=== PATIENT | female | born 1980 | race Caucasian/White ===

== ENCOUNTER 2018-12-26 17:33 | Emergency (ER) | payer SELFPAY ==
--- OUTSIDE RECORDS SUMMARY | 2018-12-26 17:35 | XMS REPORT ---
:1980 Author Organization [facility] Address [address] [place] [address] Care Team Providers Name Role Phone Unavailable Unavailable Unavailable Payers Payer Name Policy Type Policy Number Effective Date Expiration Date Problems This patient has no known problems. Allergies, Adverse Reactions, Alerts Allergy Name Allergy Status Severity Reaction(s) Onset Inactive Treating Comments Type Date Date Clinician droperidol DA Active U 2018-06 00:00:0 0 morphine DA Active U 2018-06 00:00:0 0 cefaclor DA Active U 2018-06 00:00:0 0 Medications This patient has no known medications.
--- OUTSIDE RECORDS SUMMARY | 2018-12-26 17:35 | XMS REPORT | Clinical Summary ---
:1980 Author Organization [facility] Address [address] [place] [address] Care Team Providers Name Role Phone Unavailable Primary Care Provider Unavailable Allergies Active Allergy Reactions Severity Noted Date Comments Cefaclor 09/29/2017 Droperidol 09/29/2017 Morphine 09/29/2017 Medications Not on file Active Problems Not on file Social History Tobacco Use Types Packs/Day Years Used Date Never Assessed Sex Assigned at Date Recorded Not on file Job Start Date Occupation Industry Not on file Not on file Not on file Travel History Travel Start Travel End No recent travel history available. Last Filed Vital Signs Not on file Plan of Treatment Not on file Results Not on fileafter 12/25/2017 Insurance Payer Benefit Plan / Group Subscriber ID Type Phone Address [facility] [employer] [facility] xxxxxxxxx O Advance Directives Patient has advance care planning documents on file. For more information, please contact:[phone] [place] [address]
[2018-12-26] MEDS ORDERED: MEPERIDINE HCL 25 MG/0.5 ML ONE ×2 (18:28→21:45)
[2018-12-26] MEDS ORDERED: PROMETHAZINE 25 MG/ML VIAL ONE (18:29)
[2018-12-26 18:58] LABS: Urine Blood 3+ (NEG); Urine Glucose NEGATIVE (NEG); Urine Protein 2+ (NEG)
[2018-12-26 19:04] LABS: Absolute Lymphocytes (CBC) 1.9 K/uL (0.7-4.9); Absolute Monocytes 0.6 K/uL (0.1-1.3); Basophils % 0.5 % (0-1.3); Eosinophils % 1.5 % (0-4.4); Hematocrit 40.3 % (36.0-45.0); Lymphocytes % 24.6 % (15.3-44.8); MPV 7.4 fL (7.6-11.3); Monocytes % 7.8 % (3.3-12.3); RBC Red Blood Cell Count 4.92 M/uL (3.86-4.86)
[2018-12-26 19:21] LABS: ALT/SGPT 28 U/L (12-78); AST/SGOT 14 U/L (15-37); Alkaline Phosphatase 62 U/L (45-117); BUN Blood Urea Nitrogen 8 mg/dL (7-18); Bicarbonate 24 mmol/L (21-32); Bilirubin Direct < 0.1 mg/dL (0-0.2); Bilirubin Total 0.3 mg/dL (0.2-1.0); Glucose Level 93 mg/dL (74-106); Lipase 291 U/L (73-393); Potassium 3.7 mmol/L (3.5-5.1); Protein, Total 8.1 g/dL (6.4-8.2); Sodium Level 140 mmol/L (136-145)
--- NOTE | 2018-12-26 19:24 | RAD REPORT ---
EXAM DESCRIPTION: US - Abdomen Exam Limited - 12/26/2018 7:08 pm CLINICAL HISTORY: Abdominal pain. COMPARISON: None. FINDINGS: The gallbladder wall is not thickened. A gallstone is not seen. The biliary tree is normal caliber. IMPRESSION: Unremarkable gallbladder ultrasound.
--- NOTE | 2018-12-26 20:13 | RAD REPORT ---
EXAM DESCRIPTION: CT - Abdomen Pelvis W Contrast - 12/26/2018 7:49 pm CLINICAL HISTORY: Abdominal pain with nausea. COMPARISON: none. TECHNIQUE: Computed axial tomography of the abdomen pelvis was obtained. 100 cc Isovue-300 was admin istered intravenously. Oral contrast was not requested which limits evaluation of bowel. All CT scans are performed using dose optimization technique as appropriate and may include automated exposure control or mA/KV adjustment according to patient size. FINDINGS: The liver, spleen, pancreas, adrenal and kidneys appear unremarkable. There is no evidence of diverticulitis. The appendix is normal. An IUD is in place. An adnexal mass is not seen A tiny umbilical hernia IMPRESSION: No acute abnormality is displayed.
[2018-12-26] MEDS ORDERED: MAGNE/ALUM HYDROXD 30 ML UCUP ONE (20:45)
[2018-12-26] MEDS ORDERED: LIDOCAINE VISCOUS 2% SOLN 15 ML UDC ONE (20:45)
--- NOTE | 2018-12-26 22:24 | ER ---
Nurse's Notes [facility] Name: Riana Franklin Age: 38 yrs Sex: Female : 1980 Arrival Date: 12/26/2018 Time: 17:38 Bed 18 Private MD: None, None Diagnosis: Gastritis, unspecified Presentation: 12/26 17:57 Presenting complaint: Patient states: epigastric pain radiates to the back, nausea sv started today. Transition of care: patient was not received from another setting of care. Onset of symptoms was December 26, 2018. Care prior to arrival: None. 17:57 Method Of Arrival: Ambulatory sv 17:57 Acuity: ELTON 3 sv 19:00 Risk Assessment: Do you want to hurt yourself or someone else? Patient reports no jb4 desire to harm self or others. Triage Assessment: 18:00 General: Appears in no apparent distress. uncomfortable, Behavior is calm, cooperative, sv appropriate for age. Pain: Complains of pain in epigastric area Pain currently is 7 out of 10 on a pain scale. Neuro: Level of Consciousness is awake, alert, obeys commands, Oriented to person, place, time, situation, Gait is steady. Respiratory: Respiratory effort is even, unlabored, Respiratory pattern is regular, symmetrical. GI: Reports upper abdominal pain, nausea. Historical: - Allergies: 17:59 Morphine; sv 17:59 Droperidol; sv 17:59 Ceclor; sv - PMHx: 17:59 Ovarian cyst; sv - PSHx: 17:59 breast augmentation; ovarian cyst; sv - Immunization history:: Adult Immunizations up to date, Flu vaccine is up to date. - Social history:: Smoking status: Patient/guardian denies using tobacco. - Ebola Screening: : No symptoms or risks identified at this time. Screenin:30 Abuse screen: Denies threats or abuse. Denies injuries from another. Nutritional sg screening: No deficits noted. Tuberculosis screening: No symptoms or risk factors identified. Never had TB. Fall Risk None identified. Assessment: 18:10 General: Appears in no apparent distress. uncomfortable, well groomed, well developed, sg well nourished, Behavior is calm, cooperative, appropriate for age. Pain: Complains of pain in right upper quadrant and epigastric area Quality of pain is described as aching, crampy. Neuro: No deficits noted. Cardiovascular: Capillary refill is brisk in bilateral fingers Patient's skin is warm and dry. Chest pain is denied. Respiratory: Airway is patent Respiratory effort is even, unlabored, Respiratory pattern is regular, symmetrical, Breath sounds are clear. GI: Bowel sounds present X 4 quads. Abd is soft X 4 quads Abdomen is tender to palpation in right upper quadrant. : No signs and/or symptoms were reported regarding the genitourinary system. EENT: No signs and/or symptoms were reported regarding the EENT system. Derm: Skin is pink, warm \T\ dry. Musculoskeletal: No signs and/or symptoms reported regarding the musculoskeletal system. 19:00 Reassessment: Patient appears in no apparent distress at this time. Patient and/or jb4 family updated on plan of care and expected duration. Pain level reassessed. Patient is alert, oriented x 3, equal unlabored respirations, skin warm/dry/pink. 20:00 Reassessment: Patient appears in no apparent distress at this time. Patient and/or jb4 family updated on plan of care and expected duration. Pain level reassessed. Patient is alert, oriented x 3, equal unlabored respirations, skin warm/dry/pink. 21:00 Reassessment: Patient appears in no apparent distress at this time. Patient and/or jb4 family updated on plan of care and expected duration. Pain level reassessed. Patient is alert, oriented x 3, equal unlabored respirations, skin warm/dry/pink. 22:00 Reassessment: Patient appears in no apparent distress at this time. Patient and/or jb4 family updated on plan of care and expected duration. Pain level reassessed. Patient is alert, oriented x 3, equal unlabored respirations, skin warm/dry/pink. Patient states feeling better. Vital Signs: 17:59 BP 182 / 98; Pulse 91; Resp 22; Temp 98.2; Pulse Ox 98% ; Weight 97.07 kg; Height 5 ft. sv 3 in. (160.02 cm); Pain 7/10; 20:00 BP 140 / 90; Pulse 76; Resp 16; Pulse Ox 98% on R/A; jb4 22:00 BP 123 / 66; Pulse 71; Resp 16; Pulse Ox 96% on R/A; jb4 17:59 Body Mass Index 37.91 (97.07 kg, 160.02 cm) ED Course: 17:38 Patient arrived in ED. dl4 17:38 None, None is Private Physician. dl4 17:58 Triage completed. sv 18:00 Arm band placed on. sv 18:06 Dwight Julian PA is PHCP. jr8 18:06 Brook Liriano MD is Attending Physician. jr8 18:13 Marcello Servin, RN is Primary Nurse. sg 18:30 Missed attempt(s): 20 gauge in right antecubital area. Bleeding controlled, band aid sg applied, catheter tip intact. 18:37 Radiology exam delayed due to IV insertion attempt and/or patient not having cy appropriate IV at this time. 18:40 Initial lab(s) drawn, by me, sent to lab. Inserted saline lock: 22 gauge in left sg antecubital area, using aseptic technique. Blood collected. 19:00 Patient has correct armband on for positive identification. Placed in gown. Bed in low jb4 position. Call light in reach. Side rails up X 1. Pulse ox on. NIBP on. 19:07 US Abdomen Limited In Process Unspecified. EDMS 19:[address] via wheelchair. sj 19:45 CT completed. Patient tolerated procedure well. Patient moved back from CT. nj 19:50 CT Abd/Pelvis - W/Contrast In Process Unspecified. EDMS 20:16 Zane Tilley, RN is Primary Nurse. jb4 21:45 Troponin (emerg Dept Use Only) Sent. jb4 22:24 Nadeem Cuello MD is Referral Physician. jr8 22:40 No provider procedures requiring assistance completed. IV discontinued, intact, jb4 bleeding controlled. Administered Medications: 18:40 Drug: Demerol 25 mg Route: IVP; Site: left antecubital; sg 19:00 Follow up: Response: No adverse reaction; Pain is decreased jb4 18:40 Drug: Promethazine 12.5 mg Route: IVP; Site: left antecubital; sg 19:00 Follow up: Response: No adverse reaction; Nausea is decreased jb4 20:40 Drug: GI Cocktail without - (Maalox Suspension 30 ml, Lidocaine Liquid 2 % 15 jb4 ml) Route: PO; 21:00 Follow up: Response: No adverse reaction; Pain is decreased jb4 21:47 Drug: Demerol 25 mg Route: IVP; Site: left antecubital; jb4 22:12 Follow up: Response: No adverse reaction; Pain is decreased jb4 Outcome: 22:24 Discharge ordered by . noy 22:40 Discharged to home ambulatory, with family. jb4 22:40 Condition: stable 22:40 Discharge instructions given to patient, family, Instructed on discharge instructions, follow up and referral plans. medication usage, Demonstrated understanding of instructions, follow-up care, medications, Prescriptions given X 3. 22:43 Patient left the ED. jb4 Signatures: Dispatcher [employer] EDCecilia Drake RN RN sv Gay, Steven, RN RN sg Jones, Susan sj Roszak, Josh, PA PA jr8 Bryson, James, RN RN jb4 Jordan, Miles Lee David dl4 Corrections: (The following items were deleted from the chart) 18:01 17:59 Pulse 91bpm; Resp 22bpm; Pulse Ox 98%; Temp 98.2F; 97.07 kg; Height 5 ft. 3 in.; sv BMI: 37.9; Pain 7/10; sv
--- NOTE | 2018-12-26 22:24 | EDPHYS ---
Physician Documentation [facility] Name: Riana Franklin Age: 38 yrs Sex: Female : 1980 Arrival Date: 12/26/2018 Time: 17:38 Bed 18 Private MD: None, None ED Physician Brook Liriano HPI: 12/26 18:39 This 38 yrs old Female presents to ER via Ambulatory with complaints of jr8 Abdominal Pain. 18:39 The patient presents with abdominal pain in the epigastric area, in the upper abdomen. jr8 Onset: The symptoms/episode began/occurred acutely, today. The symptoms radiate to back. Associated signs and symptoms: Pertinent positives: nausea. The symptoms are described as shooting, stabbing. Modifying factors: The symptoms are alleviated by nothing, the symptoms are aggravated by nothing. Severity of pain: At its worst the pain was moderate in the emergency department the pain is unchanged. The patient has not experienced similar symptoms in the past. The patient has not recently seen a physician. Historical: - Allergies: 17:59 Morphine; sv 17:59 Droperidol; sv 17:59 Ceclor; sv - PMHx: 17:59 Ovarian cyst; sv - PSHx: 17:59 breast augmentation; ovarian cyst; sv - Immunization history:: Adult Immunizations up to date, Flu vaccine is up to date. - Social history:: Smoking status: Patient/guardian denies using tobacco. - Ebola Screening: : No symptoms or risks identified at this time. ROS: 18:39 Eyes: Negative for injury, pain, redness, and discharge, ENT: Negative for injury, jr8 pain, and discharge, Neck: Negative for injury, pain, and swelling, Cardiovascular: Negative for chest pain, palpitations, and edema, Respiratory: Negative for shortness of breath, cough, wheezing, and pleuritic chest pain, Back: Negative for injury and pain, MS/Extremity: Negative for injury and deformity, Skin: Negative for injury, rash, and discoloration, Neuro: Negative for headache, weakness, numbness, tingling, and seizure. 18:39 Abdomen/GI: Positive for abdominal pain, nausea, Negative for vomiting, diarrhea, abdominal distension, anorexia, dysphagia, hematemesis, black/tarry stool, rectal pain, rectal bleeding, bowel incontinence, flatulence. Exam: 18:39 Eyes: Pupils equal round and reactive to light, extra-ocular motions intact. Lids and jr8 lashes normal. Conjunctiva and sclera are non-icteric and not injected. Cornea within normal limits. Periorbital areas with no swelling, redness, or edema. ENT: Nares patent. No nasal discharge, no septal abnormalities noted. Tympanic membranes are normal and external auditory canals are clear. Oropharynx with no redness, swelling, or masses, exudates, or evidence of obstruction, uvula midline. Mucous membranes moist. Neck: Trachea midline, no thyromegaly or masses palpated, and no cervical lymphadenopathy. Supple, full range of motion without nuchal rigidity, or vertebral point tenderness. No Meningismus. Cardiovascular: Regular rate and rhythm with a normal S1 and S2. No gallops, murmurs, or rubs. Normal PMI, no JVD. No pulse deficits. Respiratory: Lungs have equal breath sounds bilaterally, clear to auscultation and percussion. No rales, rhonchi or wheezes noted. No increased work of breathing, no retractions or nasal flaring. Back: No spinal tenderness. No costovertebral tenderness. Full range of motion. Skin: Warm, dry with normal turgor. Normal color with no rashes, no lesions, and no evidence of cellulitis. MS/ Extremity: Pulses equal, no cyanosis. Neurovascular intact. Full, normal range of motion. Neuro: Awake and alert, GCS 15, oriented to person, place, time, and situation. Cranial nerves II-XII grossly intact. Motor strength 5/5 in all extremities. Sensory grossly intact. Cerebellar exam normal. Normal gait. 18:39 Abdomen/GI: Inspection: obese Bowel sounds: active, all quadrants, Palpation: soft, in all quadrants, moderate abdominal tenderness, in the epigastric area and right upper quadrant, mass, is not appreciated, rebound tenderness, is not appreciated, voluntary guarding, is elicited in the epigastric area, involuntary guarding, is not appreciated, no appreciated organomegaly, Indicators: McBurney's point is not tender, Landry's sign is negative, Rovsing's sign is negative, Liver: tenderness, is not appreciated. Vital Signs: 17:59 BP 182 / 98; Pulse 91; Resp 22; Temp 98.2; Pulse Ox 98% ; Weight 97.07 kg; Height 5 ft. sv 3 in. (160.02 cm); Pain 7/10; 20:00 BP 140 / 90; Pulse 76; Resp 16; Pulse Ox 98% on R/A; jb4 22:00 BP 123 / 66; Pulse 71; Resp 16; Pulse Ox 96% on R/A; jb4 17:59 Body Mass Index 37.91 (97.07 kg, 160.02 cm) sv MDM: 18:07 Patient medically screened. 20:30 Differential diagnosis: bowel obstruction, cholecystitis, Cholelithiasis, jr8 diverticulitis, gastritis, gastroesophageal reflux disease, non-specific abd pain, pancreatitis, Peptic Ulcer Disease, Perf. Duodenal Ulcer, Perf. Gastric Ulcer. Data reviewed: vital signs, nurses notes, lab test result(s), EKG, radiologic studies, CT scan, ultrasound. Data interpreted: Pulse oximetry: on room air is 98 %. Interpretation: normal. Counseling: I had a detailed discussion with the patient and/or guardian regarding: the historical points, exam findings, and any diagnostic results supporting the discharge/admit diagnosis, lab results, radiology results, the need for outpatient follow up, a family practitioner, a bellperson, to return to the emergency department if symptoms worsen or persist or if there are any questions or concerns that arise at home. Response to treatment: the patient's symptoms have markedly improved after treatment. 12/26 18:06 Order name: Basic Metabolic Panel; Complete Time: 12/26 18:06 Order name: CBC with Diff; Complete Time: 19:12 12/26 18:06 Order name: Creatinine for Radiology; Complete Time: :12/26 18:06 Order name: Hepatic Function; Complete Time: :12/26 18:06 Order name: Lipase; Complete Time: 12/26 18:17 Order name: Urine Dipstick--Ancillary (enter results); Complete Time: :12/26 18:15 Order name: US Abdomen Limited; Complete Time: 12/26 18:17 Order name: Urine --Ancillary (enter results); Complete Time: 19:12/26 19:32 Order name: CT Abd/Pelvis - W/Contrast; Complete Time: 20:24 12/26 21:27 Order name: Troponin (emerg Dept Use Only); Complete Time: 22:23 12/26 18:06 Order name: IV Saline Lock; Complete Time: 18:49 12/26 18:06 Order name: Labs collected and sent; Complete Time: 18:49 12/26 18:06 Order name: Urine Test (obtain specimen); Complete Time: 18:17 12/26 18:06 Order name: Urine Dipstick-Ancillary (obtain specimen); Complete Time: 18:17 12/26 20:29 Order name: EKG - Nurse/Tech; Complete Time: 20:56 Administered Medications: 18:40 Drug: Demerol 25 mg Route: IVP; Site: left antecubital; sg 19:00 Follow up: Response: No adverse reaction; Pain is decreased jb4 18:40 Drug: Promethazine 12.5 mg Route: IVP; Site: left antecubital; sg 19:00 Follow up: Response: No adverse reaction; Nausea is decreased jb4 20:40 Drug: GI Cocktail without - (Maalox Suspension 30 ml, Lidocaine Liquid 2 % 15 jb4 ml) Route: PO; 21:00 Follow up: Response: No adverse reaction; Pain is decreased jb4 21:47 Drug: Demerol 25 mg Route: IVP; Site: left antecubital; jb4 22:12 Follow up: Response: No adverse reaction; Pain is decreased jb4 Disposition: 12/26/18 22:24 Discharged to Home. Impression: Gastritis, unspecified. - Condition is Stable. - Discharge Instructions: Gastritis, Adult. - Prescriptions for Ultracet 37.5- 325 mg Oral Tablet - take 1 tablet by ORAL route every 6 hours - for up to 5 days; do not exceed 8 tablets per day.; 30 tablet. Carafate 1 gram Oral Tablet - take 1 tablet by ORAL route 4 times per day take on an empty stomach, beginning on waking and last dose at bedtime; 100 tablet. promethazine 25 mg Rectal suppository - insert 1 suppository by RECTAL route every 6 hours; 12 suppository. - Medication Reconciliation Form, Thank You Letter, Antibiotic Education, Prescription Opioid Use form. - Follow up: Nadeem Cuello MD; When: 2 - 3 days; Reason: Recheck today's complaints, Continuance of care, Re-evaluation by your physician. - Problem is new. - Symptoms have improved. Signatures: Dispatcher [employer] [address], RN RN Marcello Montana RN RN sg Roszak, Josh, PA PA jr8 Zane Tilley RN RN jb4 Corrections: (The following items were deleted from the chart) 22:43 22:24 12/26/2018 22:24 Discharged to Home. Impression: Gastritis, unspecified. jb4 Condition is Stable. Forms are Medication Reconciliation Form, Thank You Letter, Antibiotic Education, Prescription Opioid Use. Follow up: Nadeem Cuello; When: 2 - 3 days; Reason: Recheck today's complaints, Continuance of care, Re-evaluation by your physician. Problem is new. Symptoms have improved. jr8
--- NOTE | 2018-12-27 12:21 | EKG ---
Test Date: 2018-12-26 Test Time: 20:35:04 Sr. Operations Manager: DHEERAJ MEASUREMENT RESULTS: Intervals: Rate: 69 WY: 168 QRSD: 88 QT: 398 QTc: 426 [place]: P: 57 WY: 168 QRS: -2 T: 4 INTERPRETIVE STATEMENTS: Normal sinus rhythm Normal ECG No previous ECG available for comparison Electronically Signed On 12-27-18 12:21:12 JOURNEYMAN [employer]UMBER by Aubrey Cano
== END 2018-12-26 22:43 | disposition home or self-care (01) ==
LOC: ER 17:33
DX: K29.70 Gastritis, unspecified, without bleeding (principal); Z98.82 Breast implant status; Z88.5 Allergy status to narcotic agent; Z88.8 Allergy status to other drugs, medicaments and biological substances
CPT/HCPCS: 36415; 74177; 76705; 80048; 80076; 81003; 81025; 83690; 84484; 85025; 93005; J2175; J2550; Q9967

== ENCOUNTER 2019-03-10 21:53 | Emergency (ER) | payer SELFPAY ==
--- OUTSIDE RECORDS SUMMARY | 2019-03-10 21:55 | XMS REPORT ---
:1980 [facility] Address [address] [place] [address] Care Team Providers Name Role Phone Unavailable [...]
--- OUTSIDE RECORDS SUMMARY | 2019-03-10 21:55 | XMS REPORT | Clinical Summary ---
:1980 Author Organization [facility] Address [address] [place] [address] Care Team Providers Name Role Phone Unavailable [...] Not on file Results Not on fileafter 03/09/2018 Insurance Payer Benefit Plan / Group Subscriber ID Type Phone Address [facility] [employer] [facility] xxxxxxxxx O Advance Directives Patient has advance care planning documents on file. For more information, please contact:[phone] [place] [address]
[2019-03-10] MEDS ORDERED: NA CHLORIDE 0.9% 1,000 ML ONE (22:37)
[2019-03-10] MEDS ORDERED: ONDANSETRON 4 MG/2 ML VIAL ONE (22:38)
[2019-03-10] MEDS ORDERED: MAGNE/ALUM HYDROXD 30 ML UCUP ONE (22:38)
[2019-03-10] MEDS ORDERED: LIDOCAINE VISCOUS 2% SOLN 15 ML UDC ONE (22:38)
[2019-03-10] MEDS ORDERED: PROMETHAZINE 25 MG/ML VIAL ONE (23:04)
[2019-03-10] MEDS ORDERED: MEPERIDINE HCL 25 MG/0.5 ML ONE (23:04)
[2019-03-10 23:24] LABS: Absolute Lymphocytes (CBC) 2.9 K/uL (0.7-4.9); Absolute Monocytes 0.7 K/uL (0.1-1.3); Absolute Neutrophil 5.8 K/uL (1.8-8.0); Basophils % 0.5 % (0-1.3); Eosinophils % 1.9 % (0-4.4); Hematocrit 43.5 % (36.0-45.0); Lymphocytes % 30.1 % (15.3-44.8); MPV 7.9 fL (7.6-11.3); Monocytes % 7.2 % (3.3-12.3); RBC Red Blood Cell Count 5.14 M/uL (3.86-4.86)
[2019-03-10 23:36] LABS: Urine Bacteria <20 /HPF (<20); Urine Culture Reflex Order NOT NEEDED; Urine RBC NONE SEEN /HPF (NONE SEEN)
[2019-03-10 23:41] LABS: ALT/SGPT 28 U/L (12-78); AST/SGOT 17 U/L (15-37); Alkaline Phosphatase 67 U/L (45-117); BUN Blood Urea Nitrogen 18 mg/dL (7-18); Bicarbonate 24 mmol/L (21-32); Bilirubin Direct < 0.1 mg/dL (0-0.2); Bilirubin Total 0.4 mg/dL (0.2-1.0); Glucose Level 87 mg/dL (74-106); Lipase 114 U/L (73-393); Sodium Level 141 mmol/L (136-145)
[2019-03-11 00:06] LABS: Blood Morphology Comment NOT SEEN (NOT SEEN); Platelet Estimate ADEQ; Urine White Blood Cell Casts OK
[2019-03-11] MEDS ORDERED: NA CHLORIDE 0.9% 1,000 ML ONE (01:26)
[2019-03-11] MEDS ORDERED: PROMETHAZINE 25 MG/ML VIAL ONE (02:12)
[2019-03-11] MEDS ORDERED: MEPERIDINE HCL 25 MG/0.5 ML ONE (02:12)
--- NOTE | 2019-03-11 03:04 | ER ---
Nurse's Notes [facility] Name: Riana Franklin Age: 38 yrs Sex: Female : 1980 Arrival Date: 03/10/2019 Time: 21:55 Bed 25 Private MD: Diagnosis: Gastritis, unspecified;Upper abdominal pain, unspecified Presentation: 03/10 22:05 Presenting complaint: Patient states: Abdominal pain that began a couple days ago and lp1 worsening, states pain when taking a breath; States similar symptoms when diagnosed with gastritis, but also has ovarian cysts. Transition of care: patient was not received from another setting of care. Onset of symptoms was March 10, 2019. Risk Assessment: Do you want to hurt yourself or someone else? Patient reports no desire to harm self or others. Initial Sepsis Screen: Does the patient meet any 2 criteria? No. Patient's initial sepsis screen is negative. Does the patient have a suspected source of infection? No. Patient's initial sepsis screen is negative. Care prior to arrival: None. 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 - Social history:: Smoking status: Patient/guardian denies using tobacco. - Ebola Screening: : No symptoms or risks identified at this time. - Family history:: not pertinent. - Hospitalizations: : No recent hospitalization is reported. Screenin:10 Abuse screen: Denies threats or abuse. Denies injuries from another. Nutritional lp1 screening: No deficits noted. Tuberculosis screening: No symptoms or risk factors identified. Fall Risk None identified. Assessment: 22:05 General: Appears in no apparent distress. uncomfortable, Behavior is calm, cooperative, ca1 appropriate for age. Pain: Complains of pain in abdomen Pain does not radiate. Pain currently is 10 out of 10 on a pain scale. Quality of pain is described as sharp, Pain began 1 day ago. Neuro: Level of Consciousness is awake, alert, obeys commands, Oriented to person, place, time, situation. Cardiovascular: Heart tones S1 S2 present Capillary refill < 3 seconds Patient's skin is warm and dry. Respiratory: Airway is patent Respiratory effort is even, unlabored, Respiratory pattern is regular, symmetrical, Breath sounds are clear bilaterally. GI: Abdomen is round non-distended, Bowel sounds present X 4 quads. Abd is soft X 4 quads Abdomen is tender to palpation X 4 quads. : No deficits noted. No signs and/or symptoms were reported regarding the genitourinary system. EENT: No deficits noted. No signs and/or symptoms were reported regarding the EENT system. Derm: Skin is intact, is healthy with good turgor, Skin is pink, warm \T\ dry. Musculoskeletal: Circulation, motion, and sensation intact. Capillary refill < 3 seconds. 23:11 Reassessment: Patient appears in no apparent distress at this time. Patient and/or ca1 family updated on plan of care and expected duration. Pain level reassessed. Patient is alert, oriented x 3, equal unlabored respirations, skin warm/dry/pink. Patient states feeling better. 03/11 00:02 Reassessment: Patient appears in no apparent distress at this time. Patient and/or ca1 family updated on plan of care and expected duration. Pain level reassessed. Patient is alert, oriented x 3, equal unlabored respirations, skin warm/dry/pink. Patient states feeling better. Vital Signs: 03/10 22:09 BP 146 / 104; Pulse 80; Resp 18; Temp 98.1(O); Pulse Ox 99% on R/A; Weight 92.53 kg; lp1 Height 5 ft. 3 in. (160.02 cm); Pain 10/10; 23:00 BP 134 / 78; Pulse 83; Resp 18 S; Pulse Ox 97% on R/A; ca1 03/11 00:02 BP 106 / 80; Pulse 73; Resp 19 S; Pulse Ox 99% on R/A; ca1 01:00 BP 110 / 71; Pulse 75; Resp 17; Pulse Ox 96% ; rv 02:00 BP 135 / 96; Pulse 78; Resp 16; Pulse Ox 100% ; rv 02:30 BP 112 / 63; Pulse 76; Resp 16; Pulse Ox 95% ; rv 03:00 BP 106 / 55; Pulse 77; Resp 15; Pulse Ox 100% ; rv 03/10 22:09 Body Mass Index 36.14 (92.53 kg, 160.02 cm) lp1 ED Course: 03/10 21:55 Patient arrived in ED. do 22:07 Triage completed. lp1 22:08 Carlos Manuel Bosch MD is Attending Physician. rn 22:09 Aisha Chung RN is Primary Nurse. ca1 22:10 Arm band placed on right wrist. lp1 22:10 Patient has correct armband on for positive identification. Placed in gown. Bed in low ca1 position. Call light in reach. Side rails up X 1. Pulse ox on. NIBP on. Warm blanket given. 23:11 No provider procedures requiring assistance completed. ca1 03/11 01:[address] via wheelchair. nj 01:34 CT completed. Patient tolerated procedure well. nj 01:37 [address] back from [address]. nj 01:50 CT Abd/Pelvis - W/Contrast In Process Unspecified. EDMS 03:02 IV discontinued, intact, bleeding controlled, No redness/swelling at site. Pressure rv dressing applied. Administered Medications: 03/10 21:30 Drug: Zofran 4 mg Route: IVP; Site: right antecubital; ca1 22:40 Follow up: Response: Nausea unchanged ca1 22:15 Drug: NS 0.9% 1000 ml Route: IV; Rate: 1000 ml; Site: right antecubital; ca1 23:56 Follow up: Response: No adverse reaction; IV Status: Completed infusion ca1 22:51 Drug: Phenergan 12.5 mg Route: IVP; Site: right antecubital; ca1 23:57 Follow up: Response: No adverse reaction; Nausea is decreased ca1 22:55 Drug: Demerol 25 mg Route: IVP; Site: right antecubital; ca1 23:57 Follow up: Response: No adverse reaction; Pain is decreased ca1 23:56 Drug: GI Cocktail without - (Maalox Suspension 30 ml, Lidocaine Liquid 2 % 15 ca1 ml) Route: PO; 03/11 01:17 Follow up: Response: Pain is unchanged, physician notified rv 01:17 Drug: NS 0.9% 1000 ml Route: IV; Rate: 1000 ml; Site: right antecubital; rv 03:13 Follow up: IV Status: Completed infusion rv 02:03 Drug: Phenergan 12.5 mg Route: IVP; Site: right antecubital; rv 03:13 Follow up: Response: Nausea is decreased rv 02:04 Drug: Demerol 25 mg Route: IVP; Site: right antecubital; rv 03:13 Follow up: Response: Pain is decreased rv Outcome: 03:01 Discharged to home ambulatory. rv 03:01 Condition: good 03:01 Discharge instructions given to patient, Instructed on discharge instructions, follow up and referral plans. medication usage, Demonstrated understanding of instructions, follow-up care, medications, Prescriptions given X 03:03 Discharge ordered by . rn 03:11 Prescriptions given X 3. rv 03:11 Patient left the ED. rv Signatures: Dispatcher [employer] EDMS Carlos Manuel Bosch MD MD rn Pena, Laura, RN RN lp1 Shefali Zavala Nathan nj Vicente, Ronaldo, RN RN rv Acob, TROY Leonard RN ca1 Corrections: (The following items were deleted from the chart) 03/10 23:58 23:57 Response: Nausea unchanged ca1 ca1
--- NOTE | 2019-03-11 03:04 | EDPHYS ---
Physician Documentation [facility] Name: Riana Franklin Age: 38 yrs Sex: Female : 1980 Arrival Date: 03/10/2019 Time: 21:55 Bed 25 Private MD: ED Physician Carlos Manuel Bosch HPI: 03/10 23:00 This 38 yrs old Female presents to ER via Wheelchair with complaints of rn Abdominal Pain. 23:00 The patient presents with abdominal pain in the epigastric area. Onset: The rn symptoms/episode began/occurred today. The symptoms do not radiate. Associated signs and symptoms: Pertinent positives: nausea and vomiting, diarrhea, Pertinent negatives: fever, vaginal discharge, vomiting blood. The symptoms are described as achy. Modifying factors: The symptoms are alleviated by nothing, the symptoms are aggravated by touching the area. Severity of pain: At its worst the pain was moderate in the emergency department the pain is unchanged. The patient has experienced a previous episode. The patient has not recently seen a physician. Reports epigastric abd pain that began today, similar episode in past, told gastritis, had negative u/s of gallbladder a few months ago, + nausea/vomiting/diarrhea. . 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 - Social history:: Smoking status: Patient/guardian denies using tobacco. - Ebola Screening: : No symptoms or risks identified at this time. - Family history:: not pertinent. - Hospitalizations: : No recent hospitalization is reported. ROS: 23:00 Constitutional: Negative for fever, chills, and weight loss, Eyes: Negative for injury, rn pain, redness, and discharge, Neck: Negative for injury, pain, and swelling, Cardiovascular: Negative for chest pain, palpitations, and edema, Respiratory: Negative for shortness of breath, cough, wheezing, and pleuritic chest pain, Abdomen/GI: Negative for constipation MS/Extremity: Negative for injury and deformity, Skin: Negative for injury, rash, and discoloration, Neuro: Negative for headache, weakness, numbness, tingling, and seizure. Exam: 23:00 Constitutional: This is a well developed, well nourished patient who is awake, alert, rn and in no acute distress. Head/Face: Normocephalic, atraumatic. Eyes: Pupils equal round and reactive to light, extra-ocular motions intact. Lids and lashes normal. Conjunctiva and sclera are non-icteric and not injected. Cornea within normal limits. Periorbital areas with no swelling, redness, or edema. ENT: MMM Cardiovascular: Regular rate and rhythm, No pulse deficits. Respiratory: No increased work of breathing, no retractions or nasal flaring. Abdomen/GI: soft, + epigastric tenderness, no rebound, negative blackwell MS/ Extremity: Pulses equal, no cyanosis. Neurovascular intact. Full, normal range of motion. Equal circumference. Neuro: Awake and alert, GCS 15, oriented to person, place, time, and situation. Cranial nerves II-XII grossly intact. Motor strength 5/5 in all extremities. Sensory grossly intact. Vital Signs: 22:09 BP 146 / 104; Pulse 80; Resp 18; Temp 98.1(O); Pulse Ox 99% on R/A; Weight 92.53 kg; lp1 Height 5 ft. 3 in. (160.02 cm); Pain 10/10; 23:00 BP 134 / 78; Pulse 83; Resp 18 S; Pulse Ox 97% on R/A; ca1 03/11 00:02 BP 106 / 80; Pulse 73; Resp 19 S; Pulse Ox 99% on R/A; ca1 01:00 BP 110 / 71; Pulse 75; Resp 17; Pulse Ox 96% ; rv 02:00 BP 135 / 96; Pulse 78; Resp 16; Pulse Ox 100% ; rv 02:30 BP 112 / 63; Pulse 76; Resp 16; Pulse Ox 95% ; rv 03:00 BP 106 / 55; Pulse 77; Resp 15; Pulse Ox 100% ; rv 03/10 22:09 Body Mass Index 36.14 (92.53 kg, 160.02 cm) lp1 MDM: 03/10 22:08 Patient medically screened. rn 03/11 03:02 Differential diagnosis: cholecystitis, Cholelithiasis, gastritis, gastroesophageal rn reflux disease, non-specific abd pain, pancreatitis, Peptic Ulcer Disease. Data reviewed: vital signs, nurses notes, lab test result(s), radiologic studies, CT scan, and as a result, I will discharge patient. Counseling: I had a detailed discussion with the patient and/or guardian regarding: the historical points, exam findings, and any diagnostic results supporting the discharge/admit diagnosis, lab results, radiology results, the need for outpatient follow up, to return to the emergency department if symptoms worsen or persist or if there are any questions or concerns that arise at home. Response to treatment: the patient's symptoms have markedly improved after treatment, and as a result, I will discharge patient. Special discussion: I discussed with the patient/guardian in detail that at this point there is no indication for admission to the hospital. It is understood, however, that if the symptoms persist or worsen the patient needs to return immediately for re-evaluation. Based on the history and exam findings, there is no indication for further emergent testing or inpatient evaluation. I discussed with the patient/guardian the need to see the park guard for further evaluation of the symptoms. ED course: Pt improved, sleeping, CT abdomen negative for acute finding, most likely viral enteritis vs gastritis. . 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 . 03/10 22:52 Order name: Urine Dipstick--Ancillary (enter results) 03/10 22:14 Order name: CT Abd/Pelvis - W/Contrast 03/10 22:52 Order name: Urine --Ancillary (enter results) 03/10 23:17 Order name: Basic Metabolic Panel; Complete Time: 00:59 EDMS 03/10 23:17 Order name: Liver (Hepatic) Function; Complete Time: 00:59 EDMS 03/10 23:17 Order name: Lipase; Complete Time: 00:59 EDMS 03/10 23:17 Order name: CBC with Automated Diff; Complete Time: 00:59 EDMS 03/10 23:17 Order name: Urine Microscopic Only; Complete Time: 00:59 EDMS 03/10 23:29 Order name: CBC Smear Scan; Complete Time: 00:59 EDMS 03/10 22:14 Order name: IV Saline Lock; Complete Time: 22:30 rn 03/10 22:14 Order name: Labs collected and sent; Complete Time: 22:30 rn 03/10 22:14 Order name: Urine Test (obtain specimen); Complete Time: 22:18 rn 03/10 22:14 Order name: Urine Dipstick-Ancillary (obtain specimen); Complete Time: 22:19 rn 03/10 22:14 Order name: EKG; Complete Time: 00:53 rn 03/10 22:14 Order name: EKG - Nurse/Tech; Complete Time: 23:05 rn Administered Medications: 03/10 21:30 Drug: Zofran 4 mg Route: IVP; Site: right antecubital; ca1 22:40 Follow up: Response: Nausea unchanged ca1 22:15 Drug: NS 0.9% 1000 ml Route: IV; Rate: 1000 ml; Site: right antecubital; ca1 23:56 Follow up: Response: No adverse reaction; IV Status: Completed infusion ca1 22:51 Drug: Phenergan 12.5 mg Route: IVP; Site: right antecubital; ca1 23:57 Follow up: Response: No adverse reaction; Nausea is decreased ca1 22:55 Drug: Demerol 25 mg Route: IVP; Site: right antecubital; ca1 23:57 Follow up: Response: No adverse reaction; Pain is decreased ca1 23:56 Drug: GI Cocktail without - (Maalox Suspension 30 ml, Lidocaine Liquid 2 % 15 ca1 ml) Route: PO; 03/11 01:17 Follow up: Response: Pain is unchanged, physician notified rv 01:17 Drug: NS 0.9% 1000 ml Route: IV; Rate: 1000 ml; Site: right antecubital; rv 03:13 Follow up: IV Status: Completed infusion rv 02:03 Drug: Phenergan 12.5 mg Route: IVP; Site: right antecubital; rv 03:13 Follow up: Response: Nausea is decreased rv 02:04 Drug: Demerol 25 mg Route: IVP; Site: right antecubital; rv 03:13 Follow up: Response: Pain is decreased rv Disposition: 03/11/19 03:03 Discharged to Home. Impression: Gastritis, unspecified, Upper abdominal pain, unspecified. - Condition is Stable. - Discharge Instructions: Abdominal Pain, Adult, Gastritis, Adult. - Prescriptions for Zofran ODT 4 mg Oral tablet,disintegrating - place 1 tablet by TRANSLINGUAL route every 8 hours As needed; 20 tablet. Zantac 300 mg Oral Tablet - take 1 tablet by ORAL route At bedtime; 30 tablet. Tramadol 50 mg Oral Tablet - take 1 tablet by ORAL route every 8 hours as needed; 15 tablet. - Medication Reconciliation Form, Thank You Letter, Antibiotic Education, Prescription Opioid Use form. - Follow up: Private Physician; When: As needed; Reason: Recheck today's complaints, Re-evaluation by your physician. - Problem is new. - Symptoms have improved. Signatures: Dispatcher [employer] EDMS Carlos Manuel Bosch MD MD rn Rell, Sissy RN RN lp1 Sebastian Escobar RN RN rv Acob, Aisha RN RN ca1 Corrections: (The following items were deleted from the chart) 03:11 03:03 03/11/2019 03:03 Discharged to Home. Impression: Gastritis, unspecified; Upper rv abdominal pain, unspecified. Condition is Stable. Forms are Medication Reconciliation Form, Thank You Letter, Antibiotic Education, Prescription Opioid Use. Follow up: Private Physician; When: As needed; Reason: Recheck today's complaints, Re-evaluation by your physician. Problem is new. Symptoms have improved. rn
[2019-03-11 05:19] LABS: Urine Blood 1+ (NEG); Urine Glucose NEGATIVE (NEG); Urine Protein NEGATIVE (NEG); Urine Specific Gravity >1.030 (1.005-1.030); Urine pH 5.5 (5.0-7.0)
--- NOTE | 2019-03-11 05:49 | EKG ---
Test Date: 2019-03-10 Test Time: 23:01:31 Full Time Babysitter: RAMÓN MEASUREMENT RESULTS: Intervals: Rate: 64 MN: 164 QRSD: 74 QT: 410 QTc: 422 [place]: P: 70 MN: 164 QRS: 39 T: 41 INTERPRETIVE STATEMENTS: Normal sinus rhythm Normal ECG Compared to ECG 12/26/2018 20:35:04 no significant change from previous ECG Electronically Signed On 03-11-19 05:48:36 CDT by Aubrey Cano
--- NOTE | 2019-03-11 10:52 | RAD REPORT ---
EXAM DESCRIPTION: CT Abdomen and Pelvis With Intravenous Contrast CLINICAL HISTORY: The patient is 38 years old and is Female; ABD PAIN TECHNIQUE: Axial computed tomography images of the abdomen and pelvis with intravenous contrast. S agittal and coronal reformatted images were created and reviewed. This CT exam was performed using one or more of the following dose reduction techniques: automated exposure control, adjustment of t he mA and/or kV according to patient size, and/or use of iterative reconstruction technique. COMPARISON: CT of the abdomen and pelvis December 26, 2018. FINDINGS: ARTIFACTS: The exam is suboptimal secondary to motion artifact. LUNG BASES: Unremarkable. No mass. No consolidation. ABDOMEN: LIVER: The liver is mildly fatty. GALLBLADDER AND BILE DUCTS: No calcified stones. No ductal dilation. PANCREAS: No ductal dilation. No mass. SPLEEN: Unremarkable. ADRENALS: Unremarkable. No mass. KIDNEYS AND URETERS: Unremarkable. No solid mass. No hydronephrosis. STOMACH AND BOWEL: The bladder is well distended. Oral contrast is present within the stomach. C ontrast is noted throughout majority the small bowel which is normal in caliber. Stool is present thr oughout the colon. There is no bowel obstruction. PELVIS: APPENDIX: No findings to suggest acute appendicitis. BLADDER: Unremarkable. No mass. REPRODUCTIVE: An IUD is in place. A 4.9 x 3.7 cm left ovarian cyst is present. No follow-up im aging is recommended. The uterus and right ovary are unremarkable. ABDOMEN and PELVIS: INTRAPERITONEAL SPACE: Unremarkable. No free air. No significant fluid collection. BONES/JOINTS: No acute fracture. SOFT TISSUES: Bilateral breast implants are partially visualized. VASCULATURE: Unremarkable. No abdominal aortic aneurysm. LYMPH NODES: Unremarkable. No enlarged lymph nodes. IMPRESSION: No acute findings on this contrasted CT of the abdomen and pelvis to explain the patient 's symptoms. Electronically signed by: Torrie Miller MD 03/11/2019 2:01 AM CDT Due to temporary technical issues with the PACS/Fluency reporting system, reports are being signed by the in house radiologist as a courtesy to ensure prompt reporting. The interpreting radiologist is f ully responsible for the content of the report.
== END 2019-03-11 03:11 | disposition home or self-care (01) ==
LOC: ER 21:53
DX: K29.70 Gastritis, unspecified, without bleeding (principal); F41.9 Anxiety disorder, unspecified; Z88.1 Allergy status to other antibiotic agents; Z88.5 Allergy status to narcotic agent
CPT/HCPCS: 36415; 74177; 80048; 80076; 81003; 81015; 81025; 83690; 85025; 93005; 96361; 96374; 96375; 99284; J2175; J2405; J2550; J7030; Q9967

== ENCOUNTER 2019-04-17 14:02 | Emergency (ER) | payer SELFPAY ==
[2019-04-17] MEDS ORDERED: IBUPROFEN 400 MG TAB ONE (14:34)
[2019-04-17] MEDS ORDERED: IBUPROFEN 200 MG TAB PO ONE (14:34)
--- NOTE | 2019-04-17 14:37 | RAD REPORT ---
EXAM DESCRIPTION: RAD - Hand Right 3 View - 04/17/2019 2:31 pm CLINICAL HISTORY: Right fourth digit pain following trauma COMPARISON: None. FINDINGS: No fracture is identified. There is no dislocation or periosteal reaction noted. No forei gn body or other soft tissue abnormality. IMPRESSION: Negative right hand examination.
--- NOTE | 2019-04-17 14:39 | ER ---
Nurse's Notes [facility] Name: Riana Franklin Age: 38 yrs Sex: Female : 1980 Arrival Date: 04/17/2019 Time: 14:06 Bed 25 Private MD: None, None Diagnosis: Other sprain of right ring finger Presentation: 04/17 14:16 Presenting complaint: Right ring finger pain 6/10 after hand got caught in dog leash hb this morning. Transition of care: patient was not received from another setting of care. Onset of symptoms was April 17, 2019. Risk Assessment: Do you want to hurt yourself or someone else? Patient reports no desire to harm self or others. Initial Sepsis Screen: Does the patient meet any 2 criteria? No. Patient's initial sepsis screen is negative. Does the patient have a suspected source of infection? No. Patient's initial sepsis screen is negative. Care prior to arrival: None. 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 - Social history:: Smoking status: Patient/guardian denies using tobacco. - Ebola Screening: : No symptoms or risks identified at this time. Screenin:18 Abuse screen: Denies threats or abuse. Denies injuries from another. Nutritional hb screening: No deficits noted. Tuberculosis screening: No symptoms or risk factors identified. Fall Risk None identified. Assessment: 14:10 General: Appears in no apparent distress. comfortable, Behavior is calm, cooperative, ca1 appropriate for age. Pain: Complains of pain in right hand and right ring finger Pain currently is 6 out of 10 on a pain scale. Quality of pain is described as shooting, throbbing, Pain began 4 hours ago. Neuro: Level of Consciousness is awake, alert, obeys commands, Oriented to person, place, time, situation. Cardiovascular: Heart tones S1 S2 present Capillary refill < 3 seconds Patient's skin is warm and dry. Respiratory: Airway is patent Respiratory effort is even, unlabored, Respiratory pattern is regular, symmetrical, Breath sounds are clear bilaterally. GI: No deficits noted. No signs and/or symptoms were reported involving the gastrointestinal system. : No deficits noted. No signs and/or symptoms were reported regarding the genitourinary system. EENT: No deficits noted. No signs and/or symptoms were reported regarding the EENT system. Derm: Skin is intact, is healthy with good turgor, Bruising that is dark purple, on right ring finger. Musculoskeletal: Circulation, motion, and sensation intact. Capillary refill < 3 seconds, Range of motion: limited in right ring finger. 15:03 Reassessment: Patient appears in no apparent distress at this time. Patient is alert, ca1 oriented x 3, equal unlabored respirations, skin warm/dry/pink. Pt verbalized understanding of use and care of finger splint. Pt also reports of having her rjkfmb-my-fnm drive her home. Vital Signs: 14:15 BP 167 / 101; Pulse 85; Resp 16; Temp 98.5; Pulse Ox 97% on R/A; Weight 96.16 kg; hb Height 5 ft. 6 in. (167.64 cm); Pain 6/10; 14:50 BP 118 / 89; Pulse 84; Resp 17 S; Temp 98.5; Pulse Ox 98% on R/A; ca1 14:15 Body Mass Index 34.22 (96.16 kg, 167.64 cm) ED Course: 14:06 Patient arrived in ED. dl4 14:06 None, None is Private Physician. dl4 14:09 Eileen Doherty FNP-C is [facility]. kb 14:10 Carlos Manuel Bosch MD is Attending Physician. kb 14:17 Triage completed. hb 14:17 Arm band placed on. hb 14:18 Aisha Chung, RN is Primary Nurse. ca1 14:20 Patient has correct armband on for positive identification. Bed in low position. Call ca1 light in reach. Side rails up X 1. Pulse ox on. NIBP on. Warm blanket given. 14:20 No provider procedures requiring assistance completed. Patient did not have IV access ca1 during this emergency room visit. 14:32 Hand Right 3 View XRAY In Process Unspecified. EDMS 14:44 applied right finger splint. lt1 Administered Medications: 14:39 Not Given (Pt reported to have taken Ibuprofen 800mg at noon today. Notified provider. ca1 ): Ibuprofen 600 mg PO once 14:46 Drug: [place] (7.5 mg-325 mg) 1 tabs Route: PO; ca1 15:03 Follow up: Response: No adverse reaction; Pain is decreased ca1 Outcome: 14:39 Discharge ordered by . alireza 15:06 Discharged to home ambulatory. ca1 15:06 Condition: stable 15:06 Discharge instructions given to patient, Instructed on discharge instructions, follow up and referral plans. medication usage, Demonstrated understanding of instructions, follow-up care, medications, Prescriptions given X 1. 15:06 Patient left the ED. ca1 Signatures: Dispatcher [employer] EDMS Eileen Doherty, METER TESTER PRIMARY-C METER TESTER PRIMARY-CkSandra Fischer RN RN hb Luna, David dl4 Aisha Chung RN RN ca1 Tran, Leah lt1
--- NOTE | 2019-04-17 14:39 | EDPHYS ---
Physician Documentation [facility] Name: Riana Franklin Age: 38 yrs Sex: Female : 1980 Arrival Date: 04/17/2019 Time: 14:06 Bed 25 Private MD: None, None ED Physician Carlos Manuel Bosch HPI: 04/17 14:18 This 38 yrs old Female presents to ER via Ambulatory with complaints of kb Finger Injury. 14:25 The patient or guardian reports decreased range of motion, injury, pain, swelling, kb tenderness. The complaints affect the right ring finger. Context: The problem was sustained outdoors, resulted from walking dog and finger got pulled and twisted in leash. Onset: The symptoms/episode began/occurred this morning. Modifying factors: The symptoms are alleviated by nothing, the symptoms are aggravated by nothing. Associated signs and symptoms: The patient has no apparent associated signs or symptoms. Severity of symptoms: At their worst the symptoms were moderate, in the emergency department the symptoms are unchanged. The patient has not experienced similar symptoms in the past. The patient has not recently seen a physician. 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 - Social history:: Smoking status: Patient/guardian denies using tobacco. - Ebola Screening: : No symptoms or risks identified at this time. ROS: 14:23 Constitutional: Negative for fever, chills, and weight loss, Neck: Negative for injury, kb pain, and swelling, Cardiovascular: Negative for chest pain, palpitations, and edema, Respiratory: Negative for shortness of breath, cough, wheezing, and pleuritic chest pain, Abdomen/GI: Negative for abdominal pain, nausea, vomiting, diarrhea, and constipation, Skin: Negative for injury, rash, and discoloration, Neuro: Negative for headache, weakness, numbness, tingling, and seizure. 14:23 MS/extremity: Positive for injury or acute deformity, ecchymosis, pain, swelling, tenderness, of the right ring finger. Exam: 14:23 Constitutional: This is a well developed, well nourished patient who is awake, alert, kb and in no acute distress. Head/Face: Normocephalic, atraumatic. Chest/axilla: Normal chest wall appearance and motion. Nontender with no deformity. No lesions are appreciated. Cardiovascular: Regular rate and rhythm with a normal S1 and S2. No gallops, murmurs, or rubs. Normal PMI, no JVD. No pulse deficits. Respiratory: Lungs have equal breath sounds bilaterally, clear to auscultation and percussion. No rales, rhonchi or wheezes noted. No increased work of breathing, no retractions or nasal flaring. Abdomen/GI: Soft, non-tender, with normal bowel sounds. No distension or tympany. No guarding or rebound. No evidence of tenderness throughout. Back: No spinal tenderness. No costovertebral tenderness. Full range of motion. Skin: Warm, dry with normal turgor. Normal color with no rashes, no lesions, and no evidence of cellulitis. Neuro: Awake and alert, GCS 15, oriented to person, place, time, and situation. Cranial nerves II-XII grossly intact. Motor strength 5/5 in all extremities. Sensory grossly intact. Cerebellar exam normal. Normal gait. 14:23 Musculoskeletal/extremity: Extremities: grossly normal except: noted in the right ring finger: decreased ROM, ecchymosis, pain, swelling, tenderness, ROM: limited active range of motion due to pain, in the right ring finger, Circulation is intact in all extremities. Sensation intact. Vital Signs: 14:15 BP 167 / 101; Pulse 85; Resp 16; Temp 98.5; Pulse Ox 97% on R/A; Weight 96.16 kg; hb Height 5 ft. 6 in. (167.64 cm); Pain 6/10; 14:50 BP 118 / 89; Pulse 84; Resp 17 S; Temp 98.5; Pulse Ox 98% on R/A; ca1 14:15 Body Mass Index 34.22 (96.16 kg, 167.64 cm) hb MDM: 14:10 Patient medically screened. kb 14:16 Data reviewed: vital signs, nurses notes. Data interpreted: Pulse oximetry: on room air kb is 97 %. Interpretation: normal. 14:37 Test interpretation: by ED physician or midlevel provider: plain radiologic studies, kb negative for fracture. Counseling: I had a detailed discussion with the patient and/or guardian regarding: the historical points, exam findings, and any diagnostic results supporting the discharge/admit diagnosis, radiology results, the need for outpatient follow up, a family practitioner, to return to the emergency department if symptoms worsen or persist or if there are any questions or concerns that arise at home. 04/17 14:12 Order name: Hand Right 3 View XRAY; Complete Time: 14:38 kb 04/17 14:38 Order name: Finger Splint; Complete Time: 14:48 kb Administered Medications: 14:39 Not Given (Pt reported to have taken Ibuprofen 800mg at noon today. Notified provider. ca1 ): Ibuprofen 600 mg PO once 14:46 Drug: [place] (7.5 mg-325 mg) 1 tabs Route: PO; ca1 15:03 Follow up: Response: No adverse reaction; Pain is decreased ca1 Disposition: 16:31 Co-signature as Attending Physician, Carlos Manuel Bosch MD. rn Disposition: 04/17/19 14:39 Discharged to Home. Impression: Other sprain of right ring finger. - Condition is Stable. - Discharge Instructions: Finger Sprain, [id number]. - Prescriptions for Tylenol- Codeine #3 300-30 mg Oral Tablet - take 1 tablet by ORAL route every 6 hours As needed; 6 tablet. - Medication Reconciliation Form, Thank You Letter, Antibiotic Education, Prescription Opioid Use form. - Follow up: Emergency Department; When: As needed; Reason: Worsening of condition. Follow up: Private Physician; When: 2 - 3 days; Reason: Recheck today's complaints, Continuance of care, Re-evaluation by your physician. Signatures: Dispatcher [employer] Eileen Franco, SARA-Kenneth PEACOCKP-Carlos Manuel Horn MD MD rn Baxter, Heather, RN RN Aisha Chung RN RN ca1 Corrections: (The following items were deleted from the chart) 15:06 14:39 04/17/2019 14:39 Discharged to Home. Impression: Other sprain of right ring ca1 finger. Condition is Stable. Forms are Medication Reconciliation Form, Thank You Letter, Antibiotic Education, Prescription Opioid Use. Follow up: Emergency Department; When: As needed; Reason: Worsening of condition. Follow up: Private Physician; When: 2 - 3 days; Reason: Recheck today's complaints, Continuance of care, Re-evaluation by your physician. kb
--- OUTSIDE RECORDS SUMMARY | 2019-04-17 14:39 | XMS REPORT | Clinical Summary ---
:1980 Author Organization [facility] Address [address] [place] [address] Care Team Providers Name Role Phone Unavailable [...] Not on file Results Not on fileafter 04/16/2018 Insurance Payer Benefit Plan / Subscriber ID Effective Dates Phone Address Type Group [employer] [facility] xxxxxxxxx 2017-Present HMO CHOICE [facility] Advance Directives Patient has advance care planning documents on file. For more information, please contact:[address] [address]
--- OUTSIDE RECORDS SUMMARY | 2019-04-17 14:39 | XMS REPORT ---
:1980 [facility] Address [address] [place] [address] [address] [place] [address] Care Team Providers Name Role Phone Unavailable [...] cefaclor DA Active U 2018-06 00:00:0 0 droperidol DA Active MO 2015-08 00:00:0 0 morphine DA Active U 2015-08 00:00:0 0 cefaclor DA Active MO 2015-08 00:00:0 0 Medications This patient has no known medications.
[2019-04-17] MEDS ORDERED: HYDROCODONE/APAP 7.5/325 MG TAB ONE (14:58)
== END 2019-04-17 15:06 | disposition home or self-care (01) ==
LOC: ER 14:02
DX: S63.614A Unspecified sprain of right ring finger, initial encounter (principal); W23.0XXA Caught, crushed, jammed, or pinched between moving objects, initial encounter; Y93.K1 Activity, walking an animal; Y92.9 Unspecified place or not applicable; Z88.6 Allergy status to analgesic agent; Z88.1 Allergy status to other antibiotic agents
CPT/HCPCS: 99284

== ENCOUNTER 2019-06-15 14:23 | Emergency (ER) | payer SELFPAY ==
--- OUTSIDE RECORDS SUMMARY | 2019-06-15 14:25 | XMS REPORT ---
:1980 [facility] Address [address] [place] [address] Care Team Providers Name Role Phone Unavailable [...] Medications This patient has no known medications. Results Test Description Test Time Test Comments Text Results Atomic Results Result Comments FLUID,OTHER 2018-08-08 RUN 11:40:00 DATE: 08/08/18 [facility] PAGE 1 RUN TIME: 1141 Specimen Inquiry RUN USER: INTERFACE PATIE NT: BRISSA HERNANDEZ LOC: MIGUEL ÁNGEL U #: [id number] AGE/SX: 38/F ROOM: [facility] REREG DR: Pete Mcgarry MD : [birth year] BED: A DIS: 08/04/18 STATUS: DIS Luis Manuel TLOC: SPEC #: [id number] RECD: 08/03/18 STATUS: CARRIE WEBER #: [id number] ABDIFATAH: 08/03/18- SUBM DR: Pete Mcgarry MD ENTERED: 08/06/18-1223 SP TYPE: NIVIA BARONE DR: ORDERED: CYTOLOGY/SACCOM CODES: [id number] - ENDOMETRIUM, NO PROCEDURES: CYTOLOGY/SACCOM (Incomplete) TISSUES: ENDOMETRIUM, NOS - ENDOMETRIAL CYST FLUID CLINICAL HISTORY Not provided (wpd) FINAL DIAGNOSIS Designated "endometrial cyst fluid" (cytospins and cell block): - no malignant cells identified Tissue code 1 CPT code(s): 62784, 20162 pkg/ wpd 08/07/18 @ 9774 GROSS DESCRIPTION The specimen is received in a container, labeled with the patient's name and designated "endometrial cyst fluid" and consists of 30 cc of brown fluid. Two smears were prepared. One cell block was prepared. /[facility] 08/06/18 @ 1038 MICROSCOPIC DESCRIPTION The specimen consists of blood, proteinaceous fluid, and a few foamy histiocytes with rare inflammatory cells. [facility] 08/07/18 @ 9607 COMMENT: The corresponding surgical pathology [id number] showed: Designated "cyst", excision - hemorrhagic corpus luteum cyst [facility] 08/07/18 @ 1758 Signed Ankita Hooks 08/08/18 1140 END OF REPORT ENDOMETRIUM, 2018-08-07 RUN BIOPSY 18:31:00 DATE: 08/07/18 [facility] PAGE 1 RUN TIME: 1939 Specimen Inquiry RUN USER: INTERFACE PATIE NT: BRISSA HERNANDEZ LOC: [facility] #: [id number] AGE/SX: 38/F ROOM: [facility]EREG DR: Pete Mcgarry MD : [birth year] BED: A DIS: 08/04/18 STATUS: DIS Luis Manuel TLOC: SPEC #: [id number] RECD: 08/03/18 STATUS: CARRIE KHALILKenny #: [id number] ABDIFATAH: 08/03/18- SUBM DR: Pete Mcgarry MD ENTERED: 08/06/18 SP TYPE: ENDOMETBX OTHR DR: ORDERED: LEVEL IV CODES: [id number] - ENDOMETRIUM, NO PROCEDURES: LEVEL IV (Incomplete) TISSUES: ENDOMETRIUM, NOS - ENDOMETRIAL CYST CLINICAL HISTORY Not provided (wpd) FINAL DIAGNOSIS Designated "cyst", excision - hemorrhagic corpus luteum cyst Tissue code 1 CPT code(s): 07293 [facility]/wpd 08/07/18 @ 2378 GROSS DESCRIPTION The specimen is received in a formalin-filled container, labeled with the patient's name and designated "cyst". The specimen consists of a 3 x 1.5 x 1.0 cm previously opened cystic tissue containing scant red and brown material. No discrete papillary or firm lesion is noted. Ore Tester sections are submitted in one cassette. /wpd 08/06/18 @ 1100 MICROSCOPIC DESCRIPTION The specimen consists of ovarian parenchyma containing a cystic structure lined by luteinized cells. The central portion of the cyst contains hemorrhage. A few benign cystic follicles are also present. remag/wpd 08/07/18 @ 1759 Signed Ankita Hooks 08/07/18 1831 END OF REPORT
--- OUTSIDE RECORDS SUMMARY | 2019-06-15 14:25 | XMS REPORT | Continuity of Care Document ---
:1980 Author Organization [facility] Address [address] [place] [address] Phone Unavailable Care Team Providers Name Role Phone PHYSICIAN, NO Primary Care Physician Unavailable Insurance Providers Guarantor Brissa Hernandez Address [address] [place] [phone] Email NONE Payer Self Pay Insurance Subscriber's Name Brissa Hernandez Relationship Self / Same As Patient Group Number NA Group Name NA Advance Directives Directive Response Recorded Date/Time Advance Directive on File No 03/11/19 5:23am Name of Surrogate/Decision Maker N/A 03/11/19 5:36am Patient/Family Given Education Material Y - SIGNED 03/11/19...AG 03/11/19 5 :36am R/T Directives? Problems No problem information available. Medications Current Home Medications Medication Dose Units Route Directions Days Qty Instructions Start Date Clonazepam 1 Mg ORAL Twice A Day (Klonopin 1 Mg*) 1 Mg Tab Gabapentin 600 Mg ORAL Four Times Daily (Neurontin *) 600 Mg Tab Social History Social History Problem Response Recorded Date/Time Onset Date Status Hx Physical Abuse No 03/11/2019 5:23am Not Applicable Not Applicable Smoking Status Start Date Stop Date Never smoker Hospital Discharge Instructions No hospital discharge instruction information available. Plan of Care Discharge Date 03/11/19 8:11am Prescriptions See Medication Section Referrals NO PHYSICIAN Functional Status No functional status information available. Allergies, Adverse Reactions, Alerts Allergen Type Severity Reaction Status Last Updated Droperidol ([id number]) Allergy Unknown ANAPHYLAXIS Active 03/11/19 Morphine ([id number]) Allergy Unknown HIVES Active 03/11/19 Immunizations No immunization information available. Vital Signs Acute Vital Signs Vital Response Date/Time Blood Pressure 136/93 mm Hg 03/11/2019 8:10am Pulse Pulse Rate (adult) 70 beats per minute (60 - 100) 03/11/2019 8:10am Respiratory Rate 16 breaths per minute (10 - 24) 03/11/2019 8:10am Temperature Source Oral 03/11/2019 8:10am Height 5 ft 3 in 03/11/2019 5:23am Weight 204 lb 03/11/2019 5:23am Body Mass Index 36.1 kg/m^2 03/11/2019 5:23am Results Laboratory Results Test Name Result Units Flags Reference Collection Result Comments Date/Time Date/Time White Blood Count 5.8 K/ul 4.0-11.5 03/11/2019 03/11/2019 5:57am 6:28am Red Blood Count 4.64 M/ul 3.80-5.20 03/11/2019 03/11/2019 5:57am 6:28am Hemoglobin 13.7 g/dl 10.5-15.7 03/11/2019 03/11/2019 5:57am 6:28am Hematocrit 40.8 % 34.0-50.0 03/11/2019 03/11/2019 5:57am 6:28am Mean Corpuscular 87.9 fl 78-98 03/11/2019 03/11/2019 Volume 5:57am 6:28am Mean Corpuscular 29.6 pg 26.2-33.4 03/11/2019 03/11/2019 Hemoglobin 5:57am 6:28am Mean Corpuscular 33.7 g/dl 31.5-36.2 03/11/2019 03/11/2019 Hemoglobin 5:57am 6:28am Concent Red Cell 12.3 % 11.5-15.5 03/11/2019 03/11/2019 Distribution 5:57am 6:28am Width Platelet Count 225 K/ul 137-338 03/11/2019 03/11/2019 5:57am 6:28am Mean Platelet 6.1 fl L 8.4-11.8 03/11/2019 03/11/2019 Volume 5:57am 6:28am Neutrophils (%) 54.7 % 44.4-80.1 03/11/2019 03/11/2019 (Auto) 5:57am 6:28am Lymphocytes (%) 32.0 % 10.0-50.0 03/11/2019 03/11/2019 (Auto) 5:57am 6:28am Monocytes (%) 9.7 % 3.6-12.04 03/11/2019 03/11/2019 (Auto) 5:57am 6:28am Eosinophils (%) 2.7 % 0.0-5.41 03/11/2019 03/11/2019 (Auto) 5:57am 6:28am Basophils (%) 1.0 % H 0.0-0.79 03/11/2019 03/11/2019 (Auto) 5:57am 6:28am Urine Color LIGHT 03/11/2019 03/11/2019 YELLOW 5:40am 6:08am Urine Appearance CLEAR CLEAR 03/11/2019 03/11/2019 5:40am 6:08am Urine Glucose NEGATIVE NEGATIVE 03/11/2019 03/11/2019 5:40am 6:08am Urine Bilirubin NEGATIVE NEGATIVE 03/11/2019 03/11/2019 5:40am 6:08am Urine Ketones NEGATIVE NEGATIVE 03/11/2019 03/11/2019 5:40am 6:08am Urine Specific 1.048 H 1.003-1.03 03/11/2019 03/11/2019 [place] 0 5:40am 6:08am Urine Blood TRACE NEGATIVE 03/11/2019 03/11/2019 5:40am 6:08am Urine pH 6.000 5-9 03/11/2019 03/11/2019 5:40am 6:08am Urine Protein NEGATIVE NEGATIVE 03/11/2019 03/11/2019 5:40am 6:08am Urine NORMAL mg/dL 0.2-1.0 03/11/2019 03/11/2019 Urobilinogen 5:40am 6:08am Urine Nitrate NEGATIVE NEGATIVE 03/11/2019 03/11/2019 5:40am 6:08am Urine Leukocyte NEGATIVE NEGATIVE 03/11/2019 03/11/2019 Esterase 5:40am 6:08am Urine RBC 1-5 /hpf 0-5 03/11/2019 03/11/2019 5:40am 6:08am Urine WBC 1-5 /hpf 0-5 03/11/2019 03/11/2019 5:40am 6:08am Urine Epithelial 1-5 /hpf 0-5 03/11/2019 03/11/2019 Cells 5:40am 6:08am Urine Bacteria None /hpf None 03/11/2019 03/11/2019 Detected Detect 5:40am 6:08am Urine Casts None /lpf None 03/11/2019 03/11/2019 Detected Detect 5:40am 6:08am Urine Culture NO 03/11/2019 03/11/2019 Reflexed 5:40am 6:08am Random Glucose 94 mg/dL 74-106 03/11/2019 03/11/2019 5:57am 6:57am Blood Urea 12 mg/dL 6-20 03/11/2019 03/11/2019 Nitrogen 5:57am 6:57am Serum Osmolality 277 L 280-300 03/11/2019 03/11/2019 5:57am 6:57am Creatinine 0.8 mg/dL 0.50-0.90 03/11/2019 03/11/2019 5:57am 6:57am Glomerular > 60.00 03/11/2019 03/11/2019 GFR RESULTS ARE REPORTED IN mL/min/1.73m2. Filtration Rate 5:57am 6:57am Calc Normal GFR: >60mL/min Moderately decreased GFR: 30-59 mL/min Severely decreased GFR: 15-29 mL/min Kidney Failure (or Dialysis): <15 mL/min The calculated eGFR is not valid for patients younger than 18 years or older than 75 years. BUN/Creatinine 15.0 12-03/11/2019 03/11/2019 Ratio 5:57am 6:57am Sodium Level 139 mmol/L 135-145 03/11/2019 03/11/2019 5:57am 6:57am Potassium Level 3.8 mmol/L 3.5-5.2 03/11/2019 03/11/2019 5:57am 6:57am Chloride Level 106 mmol/L 98-108 03/11/2019 03/11/2019 5:57am 6:57am Carbon Dioxide 20 mmol/L L 21-32 03/11/2019 03/11/2019 Level 5:57am 6:57am Anion Gap 17.1 mEq/L 12-20 03/11/2019 03/11/2019 5:57am 6:57am Calcium Level 8.4 mg/dL L 8.6-10.0 03/11/2019 03/11/2019 5:57am 6:57am Total Protein 6.9 g/dL 6.6-8.7 03/11/2019 03/11/2019 5:57am 6:57am Albumin 3.7 g/dL 3.5-5.2 03/11/2019 03/11/2019 5:57am 6:57am Globulin 3.2 gm/dL 03/11/2019 03/11/2019 5:57am 6:57am Albumin/Globulin 1.2 >1.0 03/11/2019 03/11/2019 Ratio 5:57am 6:57am Total Bilirubin 0.4 mg/dL 0.0-1.2 03/11/2019 03/11/2019 5:57am 6:57am Aspartate Amino 20 U/L 15-32 03/11/2019 03/11/2019 Transf (AST/SGOT) 5:57am 6:57am Alanine 18 U/L 0-33 03/11/2019 03/11/2019 Aminotransferase 5:57am 6:57am (ALT/SGPT) Lipase 23 U/L 13-60 03/11/2019 03/11/2019 5:57am 6:57am Total Alkaline 49 U/L 35-105 03/11/2019 03/11/2019 Phosphatase 5:57am 6:57am Urine NEGATIVE NG/ML NEGATIVE 03/11/2019 03/11/2019 Amphetamines 5:40am 8:01am Screen Urine NEGATIVE NG/ML NEGATIVE 03/11/2019 03/11/2019 Barbiturates, 5:40am 8:01am Quantitative Urine POSITIVE NG/ML H NEGATIVE 03/11/2019 03/11/2019 Benzodiazepines 5:40am 8:01am Screen Urine NEGATIVE NG/ML NEGATIVE 03/11/2019 03/11/2019 Cannabinoids 5:40am 8:01am Urine Cocaine NEGATIVE NG/ML NEGATIVE 03/11/2019 03/11/2019 Metabolite 5:40am 8:01am Urine Opiates NEGATIVE NG/ML NEGATIVE 03/11/2019 03/11/2019 Screen 5:40am 8:01am Urine NEGATIVE NG/ML NEGATIVE 03/11/2019 03/11/2019 Phencyclidine 5:40am 8:01am (PCP) Level Methadone Level NEGATIVE NG/ML NEGATIVE 03/11/2019 03/11/2019 5:40am 8:01am Propoxyphene NEGATIVE NG/ML NEGATIVE 03/11/2019 03/11/2019 Level 5:40am 8:01am Oxycodone Level NEGATIVE NG/ML NEGATIVE 03/11/2019 03/11/2019 5:40am 8:01am Urine Drug Screen . 03/11/2019 03/11/2019 DRUGS OF ABUSE CUT-OFF VALUES Note 5:40am 7:16am AMPHETAMINES (AMPH) NEGATIVE (CUT OFF CONC: 1000 NG/ML) BARBITUATES (CHANTELL) NEGATIVE (CUT OFF CONC: 200 NG/ML) BENZODIAZEPINES (MARTHA) NEGATIVE (CUT OFF CONC: 300 NG/ML) CANNABINOIDS (THC) NEGATIVE (CUT OFF CONC: 50 NG/ML) COCAINE (PENG) NEGATIVE (CUT OFF CONC: 300 NG/ML) OPIATES (OPI) NEGATIVE (CUT OFF CONC: 300 NG/ML) PHENCYCLIDINE (PCP) NEGATIVE (CUT OFF CONC: 25 NG/ML)METHADONE (MTD) NEGATIVE (CUT OFF CONC: 300 NG/ML) PROPOXYPHENE (PPX) NEGATIVE (CUT OFF CONC: 300 NG/ML) OXYCODONE (OXY) NEGATIVE (CUT OFF CONC: 100 NG/ML) ANY POSITIVE RESULT IS UNCONFIRMED. CONFIRMATION AND QUANTITATION AVAILABLE UPON MD REQUEST. Urine HCG, NEGATIVE NEG 03/11/2019 03/11/2019 Qualitative 5:40am 5:52am If a negative result is obtained but is suspected, a new specimen should be collected after 48-72 hours and tested. If waiting 48 hrs is not medically advisable, the test result should be confirmed with at quantitative hCG assay. Procedures Procedure Status Date Provider(s) Computed tomography of abdomen and pelvis with Active 03/11/19 JIMBO DEL VALLE MD contrast Encounters Encounter Location Arrival/Admit Date Discharge/Depart Date Attending Provider Departed [place] 03/11/19 5:15am 03/11/19 8:11am [facility] Emergency Room [facility] JIMBO Frank MD Medical Ctr
--- OUTSIDE RECORDS SUMMARY | 2019-06-15 14:25 | XMS REPORT | Clinical Summary ---
:1980 Author Organization [facility] Address [address] [place] [address] Care Team Providers Name Role Phone Unavailable [...] Not on file Results Not on fileafter 06/14/2018 Insurance Payer Benefit Plan / Subscriber ID Effective Dates Phone Address Type Group Jobbr [facility] [employer] xxxxxxxxx 2017-Present HMO CHOICE [facility] Advance Directives Patient has advance care planning documents on file. For more information, please contact:[address] [address]
--- NOTE | 2019-06-15 15:31 | ER ---
Nurse's Notes [facility] Name: Riana Franklin Age: 39 yrs Sex: Female : 1980 Arrival Date: 06/15/2019 Time: 14:26 Bed 30 Private MD: Diagnosis: Sprain of ligaments of lumbar spine Presentation: 06/15 14:45 Presenting complaint: Patient states: I was bending over to lift something yesterday at la1 work and felt a pop in my lower back. Since then I have had worsening pain. Transition of care: patient was not received from another setting of care. Onset of symptoms was June 15, 2019. Risk Assessment: Do you want to hurt yourself or someone else? Patient reports no desire to harm self or others. Initial Sepsis Screen: Does the patient meet any 2 criteria? No. Patient's initial sepsis screen is negative. Does the patient have a suspected source of infection? No. Patient's initial sepsis screen is negative. Care prior to arrival: None. 14:45 Method Of Arrival: Ambulatory la1 14:45 Acuity: EL[place] 4 la1 Historical: - Allergies: 14:47 Ceclor; la1 14:47 Droperidol; la1 14:47 Morphine; la1 - PMHx: 14:47 Anxiety; Ovarian cyst; Seizures; la1 - Immunization history:: Adult Immunizations up to date. - Social history:: Smoking status: Patient/guardian denies using tobacco. - Ebola Screening: : No symptoms or risks identified at this time. Screenin:50 Abuse screen: Denies threats or abuse. Nutritional screening: No deficits noted. la1 Tuberculosis screening: No symptoms or risk factors identified. Fall Risk None identified. Assessment: 14:49 General: Appears in no apparent distress. Behavior is calm, cooperative. Pain: la1 Complains of pain in left low back. Neuro: Level of Consciousness is awake, alert, obeys commands, Oriented to person, place, time, situation, Facial symmetry appears normal, Pupils are PERRLA, Cardiovascular: Capillary refill < 3 seconds Patient's skin is warm and dry. Respiratory: Airway is patent Respiratory effort is even, unlabored, Respiratory pattern is regular, symmetrical. GI: Abdomen is round non-distended. : No signs and/or symptoms were reported regarding the genitourinary system. Vital Signs: 14:47 BP 146 / 96; Pulse 83; Resp 16; Pulse Ox 98% on R/A; Weight 94.8 kg; Height 5 ft. 3 in. la1 (160.02 cm); 14:47 Body Mass Index 37.02 (94.80 kg, 160.02 cm) la1 ED Course: 14:26 Patient arrived in ED. mr 14:45 Steve Trujillo, RN is Primary Nurse. [facility] 14:46 Triage completed. la1 14:48 Arm band placed on left wrist. la1 14:49 Sherwin Carpenter MD is Attending Physician. 14:50 Bed in low position. Call light in reach. Pulse ox on. NIBP on. la1 15:38 Allan Fay DO is Referral Physician. 15:45 No provider procedures requiring assistance completed. Patient did not have IV access la1 during this emergency room visit. Administered Medications: 15:42 Drug: Zofran 4 mg Route: PO; mg2 15:42 Follow up: Response: No adverse reaction; Medication administered at discharge. mg2 Outcome: 15:30 Discharge ordered by . 15:45 Discharged to [facility] 15:45 Condition: stable 15:45 Discharge instructions given to patient, Instructed on discharge instructions, follow up and referral plans. medication usage, Demonstrated understanding of instructions, follow-up care, medications. 15:46 Patient left the ED. la1 Signatures: Camila Umanzor mr Steve Trujillo, RN RN la Sherwin Carpenter MD MD Roman Cantrell RN RN mg2
--- NOTE | 2019-06-15 15:32 | EDPHYS ---
Physician Documentation [facility] [place] [place] Name: Riana Franklin Age: 39 yrs Sex: Female : 1980 Arrival Date: 06/15/2019 Time: 14:26 Bed 30 Private MD: ED Physician Sherwin Carpenter HPI: 06/15 15:25 This 39 yrs old Female presents to ER via Ambulatory with complaints of Back gs Pain. 15:25 The patient presents with pain that is acute. The symptoms are located in the low back. gs Onset: The symptoms/episode began/occurred yesterday. The pain does not radiate. Associated signs and symptoms: Pertinent negatives: incontinence, numbness, urinary retention. The problem was sustained when bending over. Modifying factors: the patient symptoms are aggravated by any movement, bending, movement. Severity of symptoms: At their worst the symptoms were severe, in the emergency department the symptoms are unchanged. The patient has experienced similar episodes in the past, a few times. Historical: - Allergies: 14:47 Ceclor; la1 14:47 Droperidol; la1 14:47 Morphine; la1 - PMHx: 14:47 Anxiety; Ovarian cyst; Seizures; la1 - Immunization history:: Adult Immunizations up to date. - Social history:: Smoking status: Patient/guardian denies using tobacco. - Ebola Screening: : No symptoms or risks identified at this time. ROS: 15:25 All other systems are negative. gs Exam: 15:25 Head/Face: Normocephalic, atraumatic. Eyes: Pupils equal round and reactive to light, gs extra-ocular motions intact. Lids and lashes normal. Conjunctiva and sclera are non-icteric and not injected. Cornea within normal limits. Periorbital areas with no swelling, redness, or edema. ENT: Nares patent. No nasal discharge, no septal abnormalities noted. Tympanic membranes are normal and external auditory canals are clear. Oropharynx with no redness, swelling, or masses, exudates, or evidence of obstruction, uvula midline. Mucous membranes moist. Neck: Trachea midline, no thyromegaly or masses palpated, and no cervical lymphadenopathy. Supple, full range of motion without nuchal rigidity, or vertebral point tenderness. No Meningismus. Chest/axilla: Normal chest wall appearance and motion. Nontender with no deformity. No lesions are appreciated. Cardiovascular: Regular rate and rhythm with a normal S1 and S2. No gallops, murmurs, or rubs. Normal PMI, no JVD. No pulse deficits. Respiratory: Lungs have equal breath sounds bilaterally, clear to auscultation and percussion. No rales, rhonchi or wheezes noted. No increased work of breathing, no retractions or nasal flaring. Abdomen/GI: Soft, non-tender, with normal bowel sounds. No distension or tympany. No guarding or rebound. No evidence of tenderness throughout. Skin: Warm, dry with normal turgor. Normal color with no rashes, no lesions, and no evidence of cellulitis. MS/ Extremity: Pulses equal, no cyanosis. Neurovascular intact. Full, normal range of motion. Neuro: Awake and alert, GCS 15, oriented to person, place, time, and situation. Cranial nerves II-XII grossly intact. Motor strength 5/5 in all extremities. Sensory grossly intact. Cerebellar exam normal. Normal gait. 15:25 Constitutional: The patient appears alert, awake. 15:25 Constitutional: The patient appears uncomfortable. 15:25 Back: pain, that is moderate, of the left low back. Vital Signs: 14:47 BP 146 / 96; Pulse 83; Resp 16; Pulse Ox 98% on R/A; Weight 94.8 kg; Height 5 ft. 3 in. la1 (160.02 cm); 14:47 Body Mass Index 37.02 (94.80 kg, 160.02 cm) la1 MDM: 15:17 Patient medically screened. gs 15:25 Differential diagnosis: Ligament Injury ruptured disc, sprain. Data reviewed: vital gs signs, nurses notes. Counseling: I had a detailed discussion with the patient and/or guardian regarding: the historical points, exam findings, and any diagnostic results supporting the discharge/admit diagnosis, the need for outpatient follow up. Administered Medications: 15:42 Drug: Zofran 4 mg Route: PO; mg2 15:42 Follow up: Response: No adverse reaction; Medication administered at discharge. mg2 Disposition: 06/15/19 15:30 Discharged to Home. Impression: Sprain of ligaments of lumbar spine. - Condition is Stable. - Discharge Instructions: Back Pain, Adult, Back Exercises, [id number]. - Prescriptions for Prednisone 20 mg Oral Tablet - take 1 tablet by ORAL route once daily for 5 days; 5 tablet. Tylenol- Codeine #4 300-60 mg Oral Tablet - take 1 tablet by ORAL route every 6 hours As needed; 10 tablet. - Medication Reconciliation Form, Thank You Letter, Antibiotic Education, Prescription Opioid Use, Work release form form. - Follow up: Private Physician; When: 2 - 3 days; Reason: Re-evaluation by your physician. Follow up: Allan Fay DO; When: 2 - 3 days; Reason: Re-evaluation by your physician. Signatures: Steve Trujillo RN RN la1 Sherwin Carpenter MD MD gs Roman Cantrell RN RN mg2 Corrections: (The following items were deleted from the chart) 15:39 15:30 06/15/2019 15:30 Discharged to Home. Impression: Sprain of ligaments of lumbar gs spine. Condition is Stable. Forms are Medication Reconciliation Form, Thank You Letter, Antibiotic Education, Prescription Opioid Use. Follow up: Private Physician; When: 2 - 3 days; Reason: Re-evaluation by your physician. 15:46 15:39 06/15/2019 15:30 Discharged to Home. Impression: Sprain of ligaments of lumbar la1 spine. Condition is Stable. Discharge Instructions: Back Pain, Adult, Back Exercises, [id number]. Prescriptions for Prednisone 20 mg Oral Tablet - take 1 tablet by ORAL route once daily for 5 days; 5 tablet, Tylenol-Codeine #4 300-60 mg Oral Tablet - take 1 tablet by ORAL route every 6 hours As needed; 10 tablet. and Forms are Medication Reconciliation Form, Thank You Letter, Antibiotic Education, Prescription Opioid Use. Follow up: Private Physician; When: 2 - 3 days; Reason: Re-evaluation by your physician. Follow up: Allan Fay; When: 2 - 3 days; Reason: Re-evaluation by your physician.
[2019-06-15] MEDS ORDERED: ONDANSETRON 4 MG (ODT) TAB ONE ×2 (15:56)
== END 2019-06-15 15:46 | disposition home or self-care (01) ==
LOC: ER 14:23
DX: S33.5XXA Sprain of ligaments of lumbar spine, initial encounter (principal); Z88.5 Allergy status to narcotic agent; Z88.8 Allergy status to other drugs, medicaments and biological substances
CPT/HCPCS: 99283

== ENCOUNTER 2019-12-19 14:24 | Emergency (ER) | payer SELFPAY ==
--- OUTSIDE RECORDS SUMMARY | 2019-12-19 14:27 | XMS REPORT ---
:1980 Author Organization [facility] Address [address] [place] [address] Care Team Providers Name Role Phone Unavailable [...] PATIE NT: BRISSA HERNANDEZ LOC: MIGUEL ÁNGEL #: [id number] AGE/SX: 38/F ROOM: [facility] REREG DR: Pete Mcgarry MD : [birth year] BED: A DIS: 08/04/18 STATUS: DIS Luis Manuel TLOC: SPEC #: [id number] RECD: 08/03/18 STATUS: CARRIE WEBER #: [id number] ABDIFATAH: 08/03/18- SUBM DR: Pete Mcgarry MD ENTERED: 08/06/18-1223 SP TYPE: NIVIA BARONE DR: ORDERED: CYTOLOGY/SACCOM CODES: B36907 - ENDOMETRIUM, NO PROCEDURES: CYTOLOGY/SACCOM (Incomplete) TISSUES: ENDOMETRIUM, NOS - ENDOMETRIAL CYST FLUID CLINICAL HISTORY Not provided (wpd) FINAL DIAGNOSIS Designated "endometrial cyst fluid" (cytospins and cell block): - no malignant cells identified Tissue code 1 CPT code(s): 82809, 86670 pkg/ wpd 08/07/18 @ 2157 GROSS DESCRIPTION The specimen is received in a container, labeled with the patient's name and designated "endometrial cyst fluid" and consists of 30 cc of brown fluid. Two smears were prepared. One cell block was prepared. [facility] 08/06/18 @ 9071 MICROSCOPIC DESCRIPTION The specimen consists of blood, proteinaceous fluid, and a few foamy histiocytes with rare inflammatory cells. [facility] 08/07/18 @ 0471 COMMENT: The corresponding surgical pathology [id number] showed: Designated "cyst", excision - hemorrhagic corpus luteum cyst [facility] 08/07/18 @ 1758 Signed Ankita Hooks 08/08/18 1140 END OF REPORT ENDOMETRIUM, 2018-08-07 RUN BIOPSY 18:31:00 DATE: 08/07/18 [facility] PAGE 1 RUN TIME: 1939 Specimen Inquiry RUN USER: INTERFACE PATIE NT: BRISSA HERNANDEZ LOC: MIGUEL ÁNGEL #: [id number] AGE/SX: 38/F ROOM: [facility] REREG DR: Pete Mcgarry MD : [birth year] BED: A DIS: 08/04/18 STATUS: DIS Luis Manuel TLOC: SPEC #: [id number] RECD: 08/03/18 STATUS: CARRIE GUS #: [id number] ABDIFATAH: 08/03/18- SUBM DR: Pete Mcgarry MD ENTERED: 08/06/18-834 SP TYPE: ENDOMETBX OTHR DR: ORDERED: LEVEL IV CODES: [id number] - ENDOMETRIUM, NO PROCEDURES: LEVEL IV (Incomplete) TISSUES: ENDOMETRIUM, NOS - ENDOMETRIAL CYST CLINICAL HISTORY Not provided (wpd) FINAL DIAGNOSIS Designated "cyst", excision - hemorrhagic corpus luteum cyst Tissue code 1 CPT code(s): 47972 [facility] 08/07/18 @ 4038 GROSS DESCRIPTION The specimen is received in a formalin-filled container, labeled with the patient's name and designated "cyst". The specimen consists of a 3 x 1.5 x 1.0 cm previously opened cystic tissue containing scant red and brown material. No discrete papillary or firm lesion is noted. Corn Cutter sections are submitted in one cassette. /wpd 08/06/18 @ 1100 MICROSCOPIC DESCRIPTION The specimen consists of ovarian parenchyma containing a cystic structure lined by luteinized cells. The central portion of the cyst contains hemorrhage. A few benign cystic follicles are also present. remag/wpd 08/07/18 @ 1759 Signed Ankita Hooks 08/07/18 1831 END OF REPORT
[2019-12-19] MEDS ORDERED: PANTOPRAZOLE 40 MG INJ ONE (16:33)
[2019-12-19] MEDS ORDERED: ONDANSETRON 4 MG/2 ML VIAL ONE (16:33)
[2019-12-19] MEDS ORDERED: NA CHLORIDE 0.9% 1,000 ML ONE (16:33)
[2019-12-19] MEDS ORDERED: FENTANYL CITR 100 MCG/2 ML ONE (16:33)
[2019-12-19 16:55] LABS: Absolute Lymphocytes (CBC) 1.2 K/uL (0.7-4.9); Basophils % 0.8 % (0-1.3); Hematocrit 41.2 % (36.0-45.0); Lymphocytes % 18.6 % (15.3-44.8); MPV 7.1 fL (7.6-11.3); RBC Red Blood Cell Count 4.75 M/uL (3.86-4.86)
[2019-12-19 17:06] LABS: Albumin 3.9 g/dL (3.4-5.0); Bilirubin Direct 0.1 mg/dL (0-0.2); Bilirubin Total 0.4 mg/dL (0.2-1.0); Potassium 3.8 mmol/L (3.5-5.1); Protein, Total 7.7 g/dL (6.4-8.2)
[2019-12-19 17:28] LABS: Urine Blood NEGATIVE (NEG); Urine Glucose NEGATIVE (NEG); Urine Protein NEGATIVE (NEG); Urine Specific Gravity 1.015 (1.005-1.030)
--- NOTE | 2019-12-19 17:42 | RAD REPORT ---
EXAM DESCRIPTION: CTAbdomen Pelvis W Contrast - 12/19/2019 5:29 pm CLINICAL HISTORY: Abdominal pain. ABD PAIN COMPARISON: Abdomen Pelvis W Contrast dated 03/11/2019; Abdomen Pelvis W Contrast dated 12/26/2018 TECHNIQUE: Biphasic CT imaging of the abdomen and pelvis was performed with 100 ml non-ionic IV cont rast. All CT scans are performed using dose optimization technique as appropriate and may include automated exposure control or mA/KV adjustment according to patient size. FINDINGS: The lung bases are clear. The liver, spleen, pancreas, adrenal glands and kidneys are within normal limits. No bowel obstruction, free air, free fluid or abscess. The appendix is normal. No evidence of signi ficant lymphadenopathy. No suspicious bony findings. IUD is noted within the uterus. IMPRESSION: No acute intra-abdominal or pelvic finding.
[2019-12-19] MEDS ORDERED: MAGNE/ALUM HYDROXD 30 ML UCUP ONE (18:24)
[2019-12-19] MEDS ORDERED: LIDOCAINE VISCOUS 2% SOLN 15 ML UDC ONE (18:25)
[2019-12-19] MEDS ORDERED: PROMETHAZINE INJ 25 MG/ML AMP ONE (18:25)
--- NOTE | 2019-12-19 18:46 | EDPHYS ---
Physician Documentation [facility] Name: Riana Damon Age: 39 yrs Sex: Female : 1980 Arrival Date: 12/19/2019 Time: 14:25 Bed 13 Private MD: ED Physician Carlos Manuel Bosch HPI: 12/19 16:20 This 39 yrs old Female presents to ER via Ambulatory with complaints of cp Abdominal Pain, Vomiting/Diarrhea. 16:20 The patient presents with abdominal pain in the epigastric area. Onset: The cp symptoms/episode began/occurred yesterday. The symptoms do not radiate. Associated signs and symptoms: Pertinent positives: diarrhea, nausea, Pertinent negatives: chest pain, constipation, fever, vomiting. The symptoms are described as stabbing. 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 - Social history:: Smoking status: Patient denies any tobacco usage or history of. - Ebola Screening: : Patient negative for fever greater than or equal to 101.5 degrees Fahrenheit, and additional compatible Ebola Virus Disease symptoms Patient denies exposure to infectious person Patient denies travel to an Ebola-affected area in the 21 days before illness onset No symptoms or risks identified at this time. ROS: 16:30 Constitutional: Negative for body aches, chills, fever, poor PO intake. cp 16:30 Eyes: Negative for injury, pain, redness, and discharge. cp 16:30 ENT: Negative for drainage from ear(s), ear pain, sore throat, difficulty swallowing, difficulty handling secretions. 16:30 Cardiovascular: Negative for chest pain, palpitations. 16:30 Respiratory: Negative for cough, shortness of breath, wheezing. 16:30 Abdomen/GI: Positive for abdominal pain, nausea, diarrhea, of the epigastric area, Negative for vomiting, constipation, anorexia. 16:30 Back: Negative for pain at rest, pain with movement, radiated pain. 16:30 : Negative for urinary symptoms. 16:30 Skin: Negative for rash. 16:30 Neuro: Negative for altered mental status, headache, weakness. 16:30 All other systems are negative. Exam: 16:35 Constitutional: The patient appears in no acute distress, alert, awake, non-toxic, well cp developed, well nourished, uncomfortable. 16:35 Head/Face: Normocephalic, atraumatic. cp 16:35 Eyes: Periorbital structures: appear normal, Conjunctiva: normal, no exudate, no injection, Sclera: no appreciated abnormality, Lids and lashes: appear normal, bilaterally. 16:35 ENT: External ear(s): are unremarkable, Nose: is normal, Mouth: Lips: moist, Oral mucosa: pink and intact, moist, Posterior pharynx: is normal, airway is patent, no erythema, no exudate. 16:35 Chest/axilla: Inspection: normal, Palpation: is normal, no crepitus, no tenderness. 16:35 Cardiovascular: Rate: normal, Rhythm: regular. 16:35 Respiratory: the patient does not display signs of respiratory distress, Respirations: normal, no use of accessory muscles, no retractions, labored breathing, is not present, Breath sounds: are clear throughout, no decreased breath sounds, no stridor, no wheezing. 16:35 Abdomen/GI: Inspection: abdomen appears normal, Bowel sounds: active, all quadrants, Palpation: soft, in all quadrants, moderate abdominal tenderness, in the epigastric area, rebound tenderness, is not appreciated, voluntary guarding, is elicited in the epigastric area. 16:35 Back: pain, is absent, ROM is normal. Vital Signs: 15:07 BP 150 / 106; Pulse 94; Resp 16; Temp 99.4; Pulse Ox 98% on R/A; Weight 90.72 kg; iw Height 5 ft. 2 in. (157.48 cm); Pain 8/10; 15:07 Body Mass Index 36.58 (90.72 kg, 157.48 cm) iw MDM: 16:03 Patient medically screened. cp 18:45 Data reviewed: vital signs, nurses notes, lab test result(s), radiologic studies, CT cp scan. 18:45 Differential diagnosis: cholecystitis, Cholelithiasis, gastritis, pancreatitis, Peptic cp Ulcer Disease, Perf. Duodenal Ulcer, Perf. Gastric Ulcer. Counseling: I had a detailed discussion with the patient and/or guardian regarding: the historical points, exam findings, and any diagnostic results supporting the discharge/admit diagnosis, lab results, radiology results, to return to the emergency department if symptoms worsen or persist or if there are any questions or concerns that arise at home. Response to treatment: the patient's symptoms have markedly improved after treatment, and as a result, I will discharge patient. Special discussion: Based on the patient's Hx, exam, and Dx evaluation, there is no indication for emergent surgery or inpatient Tx. It is understood by the patient/guardian that if the Sx's persist or worsen they need to return immediately for re-evaluation. 12/19 16:14 Order name: Basic Metabolic Panel; Complete Time: 18:19 cp 12/19 16:14 Order name: CBC with Diff; Complete Time: 18:19 cp 12/19 16:14 Order name: Creatinine for Radiology; Complete Time: 18:19 cp 12/19 16:14 Order name: Hepatic Function; Complete Time: 18:19 cp 12/19 16:14 Order name: Lipase; Complete Time: 18:19 cp 12/19 17:13 Order name: Urine Dipstick--Ancillary (enter results); Complete Time: 18:19 em1 12/19 16:14 Order name: CT Abd/Pelvis - IV Contrast Only: epigastric pain; Complete Time: 18:19 cp 12/19 17:13 Order name: Urine --Ancillary (enter results); Complete Time: 18:19 1 12/19 16:14 Order name: IV Saline Lock; Complete Time: 16:41 cp 12/19 16:14 Order name: Labs collected and sent; Complete Time: 16:41 cp 12/19 16:14 Order name: Urine Dipstick-Ancillary (obtain specimen); Complete Time: 17:01 cp 12/19 16:14 Order name: Urine Test (obtain specimen); Complete Time: 17:01 cp Administered Medications: 16:36 Drug: Zofran 4 mg Route: IVP; Site: right antecubital; ss 17:53 Follow up: Response: No adverse reaction; Nausea is decreased ss 16:38 Drug: NS 0.9% 1000 ml Route: IV; Rate: 1 bolus; Site: right antecubital; ss 18:15 Follow up: IV Status: Completed infusion; IV Intake: 1000ml ss 16:38 Drug: ProTONIX 40 mg Route: IVP; Site: right antecubital; ss 17:53 Follow up: Response: No adverse reaction ss 16:40 Drug: fentaNYL (PF) 25 mcg Route: IVP; Site: right antecubital; ss 17:53 Follow up: Response: No adverse reaction; Pain is decreased ss 18:40 Drug: GI Cocktail without - (Maalox Suspension 30 ml, Lidocaine Liquid 2 % 15 ss ml) Route: PO; 19:00 Follow up: Response: No adverse reaction; Marked relief of symptoms ss 18:40 Drug: Phenergan 12.5 mg Route: IVP; Site: right antecubital; ss 19:00 Follow up: Response: No adverse reaction; Nausea is decreased ss Disposition: 12/19/19 18:46 Discharged to Home. Impression: Epigastric pain, Nausea and vomiting, Diarrhea, unspecified. - Condition is Stable. - Discharge Instructions: Abdominal Pain, Adult, Diarrhea, Adult, Nausea and Vomiting, Adult. - Prescriptions for Carafate 1 gram Oral Tablet - take 1 tablet by ORAL route 4 times per day take on an empty stomach, beginning on waking and last dose at bedtime. Dissolve tablet in small amount warm water prior to ingestion; 100 tablet. Protonix 40 mg Oral Tablet - take 1 tablet by ORAL route once daily; 30 tablet. promethazine 25 mg Oral Tablet - take 1 tablet by ORAL route every 6 hours As needed; 20 tablet. - Work release form, Medication Reconciliation Form, Thank You Letter, Antibiotic Education, Prescription Opioid Use form. - Follow up: Duong Aparicio MD; When: 1 week; Reason: symptoms continue. - Problem is new. - Symptoms have improved. Addendum: 12/21/2019 19:45 Co-signature as Attending Physician, Carlos Manuel Bosch MD. r n Signatures: Dispatcher [employer] Xin Hooper RN RN iw Nieto, Roman, MD MD rn Smirch, Shelby, RN RN ss Pena, Laura, RN RN lp1 Vitaliy Craven PA PA cp Corrections: (The following items were deleted from the chart) 12/19 19:01 18:46 12/19/2019 18:46 Discharged to Home. Impression: Epigastric pain; Nausea and lp1 vomiting; Diarrhea, unspecified. Condition is Stable. Forms are Medication Reconciliation Form, Thank You Letter, Antibiotic Education, Prescription Opioid Use. Follow up: Duong Aparicio; When: 1 week; Reason: symptoms continue. Problem is new. Symptoms have improved. cp 12/20 14:12/19 16:00 Constitutional: The patient appears in no acute distress, alert, awake, cp non-toxic, well developed, well nourished, uncomfortable, cp 12/20 14:12/19 16:00 Head/Face: Normocephalic, atraumatic. cp cp 12/20 14:12/19 16:00 Eyes: Periorbital structures: appear normal, Conjunctiva: normal, no cp exudate, no injection, Sclera: no appreciated abnormality, Lids and lashes: appear normal, bilaterally, cp 12/20 14:12/19 16:00 ENT: External ear(s): are unremarkable, Nose: is normal, Mouth: Lips: cp moist, Oral mucosa: pink and intact, moist, Posterior pharynx: is normal, airway is patent, no erythema, no exudate, cp 12/20 14:12/19 16:00 Chest/axilla: Inspection: normal, Palpation: is normal, no crepitus, no cp tenderness, cp 12/20 14:12/19 16:00 Cardiovascular: Rate: normal, Rhythm: regular, cp cp 12/20 14:12/19 16:00 Respiratory: the patient does not display signs of respiratory distress, cp Respirations: normal, no use of accessory muscles, no retractions, labored breathing, is not present, Breath sounds: are clear throughout, no decreased breath sounds, no wheezing, cp 12/20 14:12/19 16:00 Abdomen/GI: Inspection: abdomen appears normal, Bowel sounds: active, all cp quadrants, Palpation: soft, in all quadrants, moderate abdominal tenderness, in the epigastric area, rebound tenderness, is not appreciated, voluntary guarding, is elicited in the epigastric area, cp 12/20 14:12/19 16:00 Back: pain, is absent, ROM is normal, cp cp
--- NOTE | 2019-12-19 18:46 | ER ---
Nurse's Notes [facility] Name: Riana Damon Age: 39 yrs Sex: Female : 1980 Arrival Date: 12/19/2019 Time: 14:25 Bed 13 Private MD: Diagnosis: Epigastric pain;Nausea and vomiting;Diarrhea, unspecified Presentation: 12/19 15:06 Presenting complaint: Patient states: upper abd pain and vomiting since yesterday. iw Transition of care: patient was not received from another setting of care. Onset of symptoms was December 18, 2019. Risk Assessment: Do you want to hurt yourself or someone else? Patient reports no desire to harm self or others. Initial Sepsis Screen: Does the patient meet any 2 criteria? No. Patient's initial sepsis screen is negative. Does the patient have a suspected source of infection? No. Patient's initial sepsis screen is negative. Care prior to arrival: None. 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 - Social history:: Smoking status: Patient denies any tobacco usage or history of. - Ebola Screening: : Patient negative for fever greater than or equal to 101.5 degrees Fahrenheit, and additional compatible Ebola Virus Disease symptoms Patient denies exposure to infectious person Patient denies travel to an Ebola-affected area in the 21 days before illness onset No symptoms or risks identified at this time. Screenin:00 Abuse screen: Denies threats or abuse. Denies injuries from another. Nutritional ss screening: No deficits noted. Tuberculosis screening: Never had TB. Fall Risk None identified. Assessment: 16:00 General: Appears uncomfortable, Behavior is calm, cooperative, Denies fever, feeling ss ill. Pain: Complains of pain in abd Pain currently is 8 out of 10 on a pain scale. Quality of pain is described as aching, Pain began 1 day ago. Is continuous. Neuro: Level of Consciousness is awake, alert, obeys commands, Oriented to person, place, time, situation, Grind Operator are equal bilaterally. Cardiovascular: Capillary refill < 3 seconds is brisk in bilateral fingers. Respiratory: Airway is patent Respiratory effort is even, unlabored, Respiratory pattern is regular, symmetrical. GI: Bowel sounds present X 4 quads. Abd is soft X 4 quads Abdomen is tender to palpation X 4 quads. Reports lower abdominal pain, upper abdominal pain, diarrhea, nausea, vomiting. : No signs and/or symptoms were reported regarding the genitourinary system. Denies burning with urination, urinary frequency. EENT: Nares are clear Oral mucosa is moist. Derm: Skin is intact, is healthy with good turgor, Skin is pink, warm \T\ dry. normal. Musculoskeletal: Circulation, motion, and sensation intact. Range of motion: intact in all extremities, Swelling absent. 17:30 Reassessment: Patient appears in no apparent distress at this time. Patient and/or ss family updated on plan of care and expected duration. Pain level reassessed. Patient states feeling better. 18:45 Reassessment: Patient appears in no apparent distress at this time. Patient and/or ss family updated on plan of care and expected duration. Pain level reassessed. Patient is alert, oriented x 3, equal unlabored respirations, skin warm/dry/pink. Vital Signs: 15:07 BP 150 / 106; Pulse 94; Resp 16; Temp 99.4; Pulse Ox 98% on R/A; Weight 90.72 kg; iw Height 5 ft. 2 in. (157.48 cm); Pain 8/10; 15:07 Body Mass Index 36.58 (90.72 kg, 157.48 cm) iw ED Course: 14:25 Patient arrived in ED. rg4 15:07 Triage completed. iw 15:54 Vitaliy Craven PA is PHCP. cp 15:54 Carlos Manuel Bosch MD is Attending Physician. cp 16:16 Radiology exam delayed due to lab results not completed at this time. (BUN/Creatinine). 2 16:26 Katie Vega, TROY is Primary Nurse. ss 16:40 Initial lab(s) drawn, by me, sent to lab. Inserted saline lock: 20 gauge in right jp3 antecubital area, using aseptic technique. Blood collected. Patient maintains SpO2 saturation greater than 95% on room air. 16:40 Patient has correct armband on for positive identification. Bed in low position. Call jp3 light in reach. Side rails up X 1. Warm blanket given. Verbal reassurance given. Pulse ox on. NIBP on. 17:30 CT Abd/Pelvis - IV Contrast Only: epigastric pain In Process Unspecified. EDMS 18:45 Duong Aparicio MD is Referral Physician. cp 19:00 No provider procedures requiring assistance completed. IV discontinued, intact, ss bleeding controlled, No redness/swelling at site. Pressure dressing applied. Administered Medications: 16:36 Drug: Zofran 4 mg Route: IVP; Site: right antecubital; ss 17:53 Follow up: Response: No adverse reaction; Nausea is decreased ss 16:38 Drug: NS 0.9% 1000 ml Route: IV; Rate: 1 bolus; Site: right antecubital; ss 18:15 Follow up: IV Status: Completed infusion; IV Intake: 1000ml ss 16:38 Drug: ProTONIX 40 mg Route: IVP; Site: right antecubital; ss 17:53 Follow up: Response: No adverse reaction ss 16:40 Drug: fentaNYL (PF) 25 mcg Route: IVP; Site: right antecubital; ss 17:53 Follow up: Response: No adverse reaction; Pain is decreased ss 18:40 Drug: GI Cocktail without - (Maalox Suspension 30 ml, Lidocaine Liquid 2 % 15 ss ml) Route: PO; 19:00 Follow up: Response: No adverse reaction; Marked relief of symptoms ss 18:40 Drug: Phenergan 12.5 mg Route: IVP; Site: right antecubital; ss 19:00 Follow up: Response: No adverse reaction; Nausea is decreased ss Intake: 18:15 IV: 1000ml; Total: 1000ml. ss Outcome: 18:46 Discharge ordered by . cp 19:00 Discharged to home ambulatory. ss 19:00 Condition: improved 19:00 Discharge instructions given to patient, Instructed on discharge instructions, follow up and referral plans. medication usage, Demonstrated understanding of instructions, follow-up care, medications, Prescriptions given X 2. 19:01 Patient left the ED. lp1 Signatures: Dispatcher [employer] Xin Hooper, RN RN iw Katie Vega RN RN ss Sissy Zacarias RN RN lp1 Vitaliy Craven PA PA cp Garcia, Rubi 4 Mel Muhammad 2 Rakan Vasquez jp3
[2019-12-19 19:14] VITALS: BP 150/106; TEMP 99.4; O2SAT 98
== END 2019-12-19 19:01 | disposition home or self-care (01) ==
LOC: ER 14:24
DX: R19.7 Diarrhea, unspecified (principal); R11.2 Nausea with vomiting, unspecified; F41.9 Anxiety disorder, unspecified; G40.909 Epilepsy, unspecified, not intractable, without status epilepticus
CPT/HCPCS: 36415; 74177; 80048; 80076; 81003; 81025; 83690; 85025; 96361; 96374; 96375; 99284; C9113; J2405; J2550; J3010; J7030; Q9967

== ENCOUNTER 2020-01-10 13:07 | Emergency (ER) | payer SELFPAY ==
--- OUTSIDE RECORDS SUMMARY | 2020-01-10 13:10 | XMS REPORT ---
:1980 [facility] Address [address] [place] [address] Care Team Providers Name Role Phone Unavailable [...] NT: BRISSA HERNANDEZ LOC: MIGUEL ÁNGEL #: [id number] AGE/SX: 38/F ROOM: [facility] DR: Pete Mcgarry MD : [birth year] BED: A DIS: 08/04/18 STATUS: DIS Luis Manuel TLOC: SPEC #: [id number] RECD: 08/03/18 STATUS: CARRIE WEBER #: [id number] ABDIFATAH: 08/03/18- SUBM DR: Pete Mcgarry MD ENTERED: 08/06/18-1223 SP TYPE: NIVIA BARONE DR: ORDERED: CYTOLOGY/SACCOM CODES: E69789 - ENDOMETRIUM, NO PROCEDURES: CYTOLOGY/SACCOM (Incomplete) TISSUES: ENDOMETRIUM, NOS - ENDOMETRIAL CYST FLUID CLINICAL HISTORY Not provided (wpd) FINAL DIAGNOSIS Designated "endometrial cyst fluid" (cytospins and cell block): - no malignant cells identified Tissue code 1 CPT code(s): 73638, 76412 pkg/ wpd 08/07/18 @ 0068 GROSS DESCRIPTION The specimen is received in a container, labeled with the patient's name and designated "endometrial cyst fluid" and consists of 30 cc of brown fluid. Two smears were prepared. One cell block was prepared. [facility] 08/06/18 @ 3157 MICROSCOPIC DESCRIPTION The specimen consists of blood, proteinaceous fluid, and a few foamy histiocytes with rare inflammatory cells. [facility] 08/07/18 @ 1662 COMMENT: The corresponding surgical pathology [id number] showed: Designated "cyst", excision - hemorrhagic corpus luteum cyst [facility] 08/07/18 @ 1758 Signed Ankita Hooks 08/08/18 1140 END OF REPORT ENDOMETRIUM, 2018-08-07 RUN BIOPSY 18:31:00 DATE: 08/07/18 [facility] PAGE 1 RUN TIME: 1939 Specimen Inquiry RUN USER: INTERFACE PATIE NT: BRISSA HERNANDEZ LOC: MIGUEL ÁNGEL #: [id number] AGE/SX: 38/F ROOM: [facility] DR: Pete Mcgarry MD : [birth year] BED: A DIS: 08/04/18 STATUS: DIS Luis Manuel TLOC: SPEC #: [id number] RECD: 08/03/18 STATUS: CARRIE GUS #: [id number] ABDIFATAH: 08/03/18- SUBM DR: Pete Mcgarry MD ENTERED: 08/06/18-834 SP TYPE: ENDOMETBX OTHR DR: ORDERED: LEVEL IV CODES: Y09350 - ENDOMETRIUM, NO PROCEDURES: LEVEL IV (Incomplete) TISSUES: ENDOMETRIUM, NOS - ENDOMETRIAL CYST CLINICAL HISTORY Not provided (wpd) FINAL DIAGNOSIS Designated "cyst", excision - hemorrhagic corpus luteum cyst Tissue code 1 CPT code(s): 75130 [facility]/wpd 08/07/18 @ 5468 GROSS DESCRIPTION The specimen is received in a formalin-filled container, labeled with the patient's name and designated "cyst". The specimen consists of a 3 x 1.5 x 1.0 cm previously opened cystic tissue containing scant red and brown material. No discrete papillary or firm lesion is noted. [employer] Responsible Investment Adviser sections are submitted in one cassette. /wpd 08/06/18 @ 1100 MICROSCOPIC DESCRIPTION The specimen consists of ovarian parenchyma containing a cystic structure lined by luteinized cells. The central portion of the cyst contains hemorrhage. A few benign cystic follicles are also present. remag/wpd 08/07/18 @ 1759 Signed Ankita Hooks 08/07/18 1831 END OF REPORT
--- OUTSIDE RECORDS SUMMARY | 2020-01-10 13:24 | XMS REPORT | Encounter Summary ---
:1980 Author Reason for Visit Psychiatric Follow Up Instructions 1. Chronic post-traumatic stress disorder Klonopin 1 mg tablet Discussion Note Advised to call if any problems or issues. Patient educational handouts: No information available. Plan of Care Patient Instructions Continue current treatment. RTC 2-months or sooner if necessary. Reminders Provider Appointments Est on or around [facility] 10/12/2019 Michele Noriega MD Lab None recorded. Referral None recorded. Procedures None recorded. Surgeries None recorded. Imaging None recorded. Medications Name Start Date Klonopin 1 mg tablet Take 1 tablet twice a day by oral route. Medications Administered None recorded. Vitals None recorded. Lab Results None recorded. Allergies None recorded. Problems Name Status Onset Date Source Chronic Post-traumatic Stress Disorder Active 06/10/2019 Procedures None recorded. Vaccine List None recorded. Social History None recorded. Past Encounters 08/12/2019 Chronic Post-traumatic Stress Disorder [facility] Michele Noriega MD: [address], [facility], [place] [address], Ph. [phone] History of Present Illness Psych Medication Management Reported By: Patient HPI: Medications: taking medications as directed, no side effects from medication. General overall feeling: feeling as well as can be expected Psychiatric General Follow-Up Reported By: Patient HPI: Context: no relationship stress, good family dynamics Associated Symptoms: Mood: no sadness. Anxiety: no generalized worry. Sleep: no insomnia. Appetite: no change Prior Treatment and Review:: Medication Compliance: greater than 90% Note: <p>Here for the first med. follow up. States she had a rough night last night. Had a nightmare that her father and woke up and could not go back to sleep. Reports doing okay otherwise. Compliant with meds. No AE. Sleep fair, appetite okay. E/C okay. Mood fair. No new health issues. No acute psychosocial stressors. Home life unchanged. Looking for a job but having a hard time finding one. Denies ETOH/drugs. No legal issues.</p> Review of Systems None recorded. Physical Exam Mental Status Exam Reported By: Patient Mental Status Exam: Appearance: well-groomed, clean. Behavior: eye contact, cooperative. Speech: clear. Perception: no hallucinations. Cognition: alert, oriented to situation, oriented to time, oriented to place, oriented to person, memory intact. Intelligence: average. Memory: remote, recent. Mood: euthymic. Affect: congruent to thought content. Insight: intact. Judgment: intact. Thought Processes: intact. Thought Content: unremarkable
--- OUTSIDE RECORDS SUMMARY | 2020-01-10 13:24 | XMS REPORT | Encounter Summary ---
:1980 Author Reason for Visit Psychiatric Follow Up Instructions 1. Chronic post-traumatic stress disorder Klonopin 1 mg tablet prazosin 2 mg capsule Discussion Note Advised to call if any problems or issues. Patient educational handouts: No information available. Plan of Care Patient Instructions Add Prazosin 2mg QHS. Benefits/AE discussed. RTC 2-months or sooner if necessary. Reminders Provider Appointments Est on or around [facility] Psychiatry 11/30/2019 Michele Noriega MD Lab None recorded. Referral None recorded. Procedures None recorded. Surgeries None recorded. Imaging None recorded. Medications Name Start Date Klonopin 1 mg tablet Take 1 tablet twice a day by oral route. prazosin 2 mg capsule Take 1 capsule every day by oral route at bedtime. Medications Administered None recorded. Vitals None recorded. Results Lab Results None recorded. Allergies None recorded. Problems Name Status Onset Date Source Chronic Post-traumatic Stress Disorder Active 06/10/2019 Procedures None recorded. Vaccine List None recorded. Social History None recorded. Past Encounters 09/30/2019 Chronic Post-traumatic Stress Disorder [facility] Michele Noriega MD: Andrea Merritt, [facility], [place] [address], Ph. [phone] History of Present Illness Psych Medication Management Reported By: Patient HPI: Medications: taking medications as directed, no side effects from medication. General overall feeling: feeling as well as can be expected Psychiatric General Follow-Up Reported By: Patient HPI: Context: relationship stress Associated Symptoms: Mood: no sadness. Anxiety: no generalized worry. Sleep: insomnia. Appetite: no change Prior Treatment and Review:: Medication Compliance: greater than 90% Note: <p>Here for med. check. Got a subpoena this morning related to case against her ex-husbandbut it was a wrong date. Was really nervous. later went to work and found out that she got promotionand she is very excited about it. Compliant with meds. No AE. sleep has been erratic. Having nightmares. Appetite okay. Energy low, concentration poor. Mood has been okay. No new health issues. Home life remains unchanged. Denies ETOH/drugs. </p> Review of Systems None recorded. Physical Exam [...]
[2020-01-10 13:36] LABS: Urine Blood NEGATIVE (NEG); Urine Glucose NEGATIVE (NEG); Urine Protein NEGATIVE (NEG); Urine Specific Gravity 1.015 (1.005-1.030)
[2020-01-10] MEDS ORDERED: FENTANYL CITR 100 MCG/2 ML ONE (14:18)
[2020-01-10] MEDS ORDERED: NA CHLORIDE 0.9% 1,000 ML ONE (14:18)
[2020-01-10] MEDS ORDERED: ONDANSETRON 4 MG/2 ML VIAL ONE (14:23)
[2020-01-10 14:41] LABS: Basophils % 0.5 % (0-1.3); Hematocrit 42.5 % (36.0-45.0); Lymphocytes % 16.2 % (15.3-44.8); MPV 7.1 fL (7.6-11.3)
[2020-01-10] MEDS ORDERED: KETOROLAC 30 MG/ML INJ ONE (15:30)
--- NOTE | 2020-01-10 15:44 | RAD REPORT ---
EXAM DESCRIPTION: CT - Stone Protocol - 01/10/2020 2:41 pm CLINICAL HISTORY: PAIN COMPARISON: Abdomen Pelvis W Contrast dated 12/19/2019 TECHNIQUE: Axial 5 mm thick images were obtained without oral or IV contrast. The [id number] span s the entirety of the system including uppermost abdomen and lung bases. All CT scans are performed using dose optimization technique as appropriate and may include automated exposure control or mA/KV adjustment according to patient size. FINDINGS: No hydronephrosis is present and no obstructing ureteral calculi. No suspicious renal mass es. Isodense masses and pyelonephritis are not excluded on a stone protocol CT scan. No urinary bladd er suspicious finding. No significant adrenal finding. IUD is in place in the uterus similar in a pos ition to December 19 imaging. Patient may have a posterior fundal fibroid. No new uterine finding. No ovarian suspicious finding. Fallopian tubes are normal. Imaged portions of the liver, spleen and pancreas show no suspicious findings on non-contrast imaging . No gallbladder or biliary tree abnormality identified. No suspicious bowel findings. Appendix is normal. No active GI process identifiable. No hernia, mass or bulky lymphadenopathy noted. No free air, free fluid or inflammatory stranding. No significant bony abnormality. IMPRESSION: Noncontrast CT abdomen and pelvis imaging showing no significant or suspicious finding. Isodense masses and pyelonephritis are not excluded on stone protocol technique.Overall exam sensitiv ity is decreased in the absence of contrast. No new findings seen from December 19 imaging.
--- NOTE | 2020-01-10 16:02 | ER ---
Nurse's Notes [facility] Name: Riana Damon Age: 39 yrs Sex: Female : 1980 Arrival Date: 01/10/2020 Time: 13:08 Bed 20 Private MD: Diagnosis: Pelvic and perineal pain;Low back pain Presentation: 01/10 13:11 Note pt in restroom at this time, urine specimen cup given as pt states " i need to go tw2 to the bathroom". 13:14 Presenting complaint: Patient states: it was like 2 days i go, i suffer from ovarian tw2 cyst, i went to go walk and i got that catching feeling on my LEFT when i walked to bathroom, i went to sleep and took some pain medicine to sleep, i woke up yesterday and i was fine, pain here and there but it was fine, then ever since last night its more on my lower pelvic and extreme pain in my low back area and its shooting the pain down both my legs. Transition of care: patient was not received from another setting of care. Onset of symptoms was January 10, 2020. Risk Assessment: Do you want to hurt yourself or someone else? Patient reports no desire to harm self or others. Initial Sepsis Screen: Does the patient meet any 2 criteria? HR > 90 bpm. No. Patient's initial sepsis screen is negative. Does the patient have a suspected source of infection? No. Patient's initial sepsis screen is negative. Care prior to arrival: None. 13:14 Method Of Arrival: Ambulatory tw2 13:14 Acuity: ELTON 3 tw2 Triage Assessment: 13:17 General: Appears uncomfortable, Behavior is crying. Pain: Complains of pain in left low tw2 back, right low back and pelvis. : Reports urinary frequency, urinary hesitancy at times. Musculoskeletal: Range of motion: intact in all extremities. 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 - Coronavirus screen:: The patient has NOT traveled to [place] in the past 14 days. - Social history:: Smoking status: . - Ebola Screening: : Patient denies travel to an Ebola-affected area in the 21 days before illness onset. Screenin:41 Abuse screen: Denies threats or abuse. Nutritional screening: No deficits noted. ah Tuberculosis screening: No symptoms or risk factors identified. Fall Risk None identified. Assessment: 14:15 General: Appears uncomfortable, Behavior is calm, cooperative. Pain: Complains of pain ah in low back area and left low back, also has pain in suprapubic area Pain radiates to bilateral hips Pain currently is 9 out of 10 on a pain scale. Quality of pain is described as burning, sharp, Pain began 2-3 days ago. Is continuous, Alleviated by repositioning, Aggravated by laying flat and walking. Neuro: Level of Consciousness is awake, alert, Oriented to person, place, time, situation. Cardiovascular: Heart tones S1 S2 Capillary refill Patient's skin is warm and dry. Respiratory: Airway is patent Respiratory effort is even, unlabored, Respiratory pattern is regular, Breath sounds are clear bilaterally. GI: Abdomen is pt feels bloated Bowel sounds present X 4 quads. Abdomen is tender to palpation Reports nausea, Patient currently denies vomiting. : Reports cramping, after urination urgency, since monday Denies discharge, vaginal bleeding. EENT: No signs and/or symptoms were reported regarding the EENT system. Derm: Skin. Musculoskeletal: No signs and/or symptoms reported regarding the musculoskeletal system. Vital Signs: 13:19 BP 148 / 86; Pulse 112; Resp 18; Temp 97.9(TE); Pulse Ox 100% on R/A; Weight 87.54 kg tw2 (R); Height 5 ft. 3 in. (160.02 cm); Pain 8/10; 15:33 BP 112 / 61; Pulse 79; Resp 18; Pulse Ox 100% ; sv 13:19 Body Mass Index 34.19 (87.54 kg, 160.02 cm) tw2 ED Course: 13:08 Patient arrived in ED. mr 13:17 Triage completed. tw2 13:18 Arm band placed on. tw2 13:21 Vitaliy Carey MD is Attending Physician. [facility] 13:25 Urine collected: clean catch specimen, clear, bruno colored. jb1 13:37 Urine --Ancillary (enter results) Sent. sv 13:37 Urine Dipstick--Ancillary (enter results) Sent. sv 14:02 Cecilia Guillen, RN is Primary Nurse. sv 14:10 Elena Israel FNP-C [facility] snw 14:11 Assist provider with pelvic exam: Set up pelvic tray. Performed by Elena RUIZ-C Specimens sent to lab. Patient tolerated well. 14:20 Patient has correct armband on for positive identification. Placed in gown. Bed in low sv position. Call light in reach. Door closed. Head of bed elevated. 14:32 Inserted saline lock: 20 gauge in right antecubital area, using aseptic technique. sv Blood collected. Flushed right antecubital with 2 ml normal saline. 14:38 Missed attempt(s): 22 gauge in left antecubital area. Bleeding controlled, band aid ah applied, catheter tip intact. 14:[address] via wheelchair. ah 14:45 CT Stone Protocol Sent. sv 14:45 Chem 7 Sent. sv 14:45 CBC with Diff Sent. sv 14:45 Wet Prep Sent. sv 14:45 GC Probe Sent. sv 14:[address] back from [address]. ah 15:28 Awaiting radiology results. sv 16:15 IV discontinued, intact, bleeding controlled, No redness/swelling at site. Pressure ah dressing applied. Administered Medications: 14:35 Drug: fentaNYL (PF) 50 mcg {Note: Rass 1.} Route: IVP; Site: right antecubital; ah 15:36 Follow up: Response: No adverse reaction; Pain is decreased ah 14:35 Drug: Zofran 4 mg Route: IVP; Site: right antecubital; ah 15:36 Follow up: Response: No adverse reaction ah 15:38 Follow up: Response: No adverse reaction ah 14:55 Drug: NS 0.9% 1000 ml Route: IV; Rate: 1 bolus; Site: right antecubital; ah 16:39 Follow up: Response: No adverse reaction; IV Status: Completed infusion; IV Intake: ah 1000ml 15:30 Drug: TORadol 30 mg Route: IVP; Site: right antecubital; 16:38 Follow up: Response: No adverse reaction; Pain is decreased 16:20 Drug: Doxycycline 100 mg Route: PO; 16:38 Follow up: Response: Medication administered at discharge. 16:20 Drug: Zithromax 1 grams Route: PO; 16:38 Follow up: Response: Medication administered at discharge. 16:20 Drug: Phenergan 25 mg Route: PO; 16:37 Follow up: Response: Medication administered at discharge. Intake: 16:39 IV: 1000ml; Total: 1000ml. Outcome: 16:02 Discharge ordered by . snw 16:20 Discharged to home ambulatory. 16:20 Condition: good 16:20 Discharge instructions given to patient, Instructed on discharge instructions, follow up and referral plans. medication usage, Demonstrated understanding of instructions, follow-up care, medications, Prescriptions given X 4. 16:40 Patient left the ED. Signatures: Valeriy Dempsey jb1 Cecilia Guillen, RN RN Vitaliy Ramires MD MD cha Therrien, Shelly, SPICE CLEANER-C SPICE CLEANER-Csnw UmanzorCamila Jess Rivera, RN RN 2 Simran Cano, RN RN Corrections: (The following items were deleted from the chart) 15:34 14:35 fentaNYL (PF) 50 mcg IVP in right antecubital [facility]
--- NOTE | 2020-01-10 16:03 | EDPHYS ---
Physician Documentation [facility] Name: Riana Damon Age: 39 yrs Sex: Female : 1980 Arrival Date: 01/10/2020 Time: 13:08 Bed 20 Private MD: AGUILA Physician Vitaliy Carey HPI: 01/10 16:15 This 39 yrs old Female presents to ER via Ambulatory with complaints of snw Pelvic Pain, Back Pain. 16:15 Onset: The symptoms/episode began/occurred suddenly, 2 day(s) ago, and became worse and snw became persistent. Associated signs and symptoms: Pertinent positives: The patient does not have any pertinent positive signs or symptoms associated with pediatric illness. Modifying factors: The patient symptoms are alleviated by nothing, the patient symptoms are aggravated by movement, lying flat, standing. The patient has not experienced similar symptoms in the past. It is unknown whether or not the patient has recently seen a physician. 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 - Coronavirus screen:: The patient has NOT traveled to [place] in the past 14 days. - Social history:: Smoking status: . - Ebola Screening: : Patient denies travel to an Ebola-affected area in the 21 days before illness onset. ROS: 16:14 Constitutional: Negative for fever, chills, and weight loss, Eyes: Negative for injury, snw pain, redness, and discharge, ENT: Negative for injury, pain, and discharge, Neck: Negative for injury, pain, and swelling, Cardiovascular: Negative for chest pain, palpitations, and edema, Respiratory: Negative for shortness of breath, cough, wheezing, and pleuritic chest pain, Abdomen/GI: Negative for abdominal pain, nausea, vomiting, diarrhea, and constipation, MS/Extremity: Negative for injury and deformity, Skin: Negative for injury, rash, and discoloration, Neuro: Negative for headache, weakness, numbness, tingling, and seizure, Psych: Negative for depression, anxiety, suicide ideation, homicidal ideation, and hallucinations. 16:14 Back: Positive for pain at rest, pain with movement, of the low back area. 16:14 : Positive for pelvic pain, lmp 5 days ago, pulling sensation down anterior thighs. Exam: 16:11 Constitutional: This is a well developed, well nourished patient who is awake, alert, snw and in no acute distress. Head/Face: Normocephalic, atraumatic. Eyes: Pupils equal round and reactive to light, extra-ocular motions intact. Lids and lashes normal. Conjunctiva and sclera are non-icteric and not injected. Cornea within normal limits. Periorbital areas with no swelling, redness, or edema. ENT: Nares patent. No nasal discharge, no septal abnormalities noted. Tympanic membranes are normal and external auditory canals are clear. Oropharynx with no redness, swelling, or masses, exudates, or evidence of obstruction, uvula midline. Mucous membranes moist. Neck: Trachea midline, no thyromegaly or masses palpated, and no cervical lymphadenopathy. Supple, full range of motion without nuchal rigidity, or vertebral point tenderness. No Meningismus. Chest/axilla: Normal chest wall appearance and motion. Nontender with no deformity. No lesions are appreciated. Cardiovascular: Regular rate and rhythm with a normal S1 and S2. No gallops, murmurs, or rubs. Normal PMI, no JVD. No pulse deficits. Respiratory: Lungs have equal breath sounds bilaterally, clear to auscultation and percussion. No rales, rhonchi or wheezes noted. No increased work of breathing, no retractions or nasal flaring. Abdomen/GI: Soft, non-tender, with normal bowel sounds. No distension or tympany. No guarding or rebound. No evidence of tenderness throughout. 16:11 Pelvic Exam: Normal external genitalia. Speculum exam with closed cervical os, brown dc at cervix, strings of IUD intact, no bleeding noted. Bimanual exam with normal adnexa, no adnexal or cervical motion tenderness. Normal uterus. Skin: Warm, dry with normal turgor. Normal color with no rashes, no lesions, and no evidence of cellulitis. MS/ Extremity: Pulses equal, no cyanosis. Neurovascular intact. Full, normal range of motion. Neuro: Awake and alert, GCS 15, oriented to person, place, time, and situation. Cranial nerves II-XII grossly intact. Motor strength 5/5 in all extremities. Sensory grossly intact. Cerebellar exam normal. Normal gait. Psych: Awake, alert, with orientation to person, place and time. Behavior, mood, and affect are within normal limits. 16:11 Back: pain, that is moderate, that is severe, of the low back area, CVA tenderness, is absent, muscle spasm, is not present. Vital Signs: 13:19 BP 148 / 86; Pulse 112; Resp 18; Temp 97.9(TE); Pulse Ox 100% on R/A; Weight 87.54 kg tw2 (R); Height 5 ft. 3 in. (160.02 cm); Pain 8/10; 15:33 BP 112 / 61; Pulse 79; Resp 18; Pulse Ox 100% ; sv 13:19 Body Mass Index 34.19 (87.54 kg, 160.02 cm) tw2 MDM: 13:21 Patient medically screened. bill 16:13 Data reviewed: vital signs, nurses notes. Data interpreted: Pulse oximetry: on room air snw is 100 %. Interpretation: normal. Counseling: I had a detailed discussion with the patient and/or guardian regarding: the historical points, exam findings, and any diagnostic results supporting the discharge/admit diagnosis, lab results, radiology results, the need for outpatient follow up, to return to the emergency department if symptoms worsen or persist or if there are any questions or concerns that arise at home. Response to treatment: the patient's symptoms have markedly improved after treatment. Special discussion: Based on the patient's Hx, exam, and Dx evaluation, there is no indication for emergent surgery or inpatient Tx. It is understood by the patient/guardian that if the Sx's persist or worsen they need to return immediately for re-evaluation. Based on the history and exam findings, there is no indication for further emergent testing or inpatient evaluation. I discussed with the patient/guardian the need to see the OB Gyne specialist for further evaluation of the symptoms. I discussed with the patient/guardian the need to see the primary care provider for further evaluation of the symptoms. 01/10 13:28 Order name: Urine Dipstick--Ancillary (enter results) eb 01/10 13:28 Order name: Urine --Ancillary (enter results) eb 01/10 13:37 Order name: Urine --Ancillary; Complete Time: 13:48 EDMS 01/10 13:37 Order name: Urine Dipstick-Ancillary; Complete Time: 13:48 EDMS 01/10 14:12 Order name: GC Probe snw 01/10 14:12 Order name: Wet Prep snw 01/10 14:12 Order name: CBC with Diff snw 01/10 14:12 Order name: Chem 7 snw 01/10 14:12 Order name: CT Stone Protocol snw 01/10 14:39 Order name: Wet Prep; Complete Time: 14:39 EDMS 01/10 14:44 Order name: CBC with Automated Diff; Complete Time: 15:02 EDMS 01/10 15:07 Interpretation: MCHC 33.2. snw 01/10 15:02 Order name: Basic Metabolic Panel; Complete Time: 15:02 EDMS 01/10 15:50 Order name: CT; Complete Time: 15:56 EDMS Administered Medications: 14:35 Drug: fentaNYL (PF) 50 mcg {Note: Rass 1.} Route: IVP; Site: right antecubital; ah 15:36 Follow up: Response: No adverse reaction; Pain is decreased ah 14:35 Drug: Zofran 4 mg Route: IVP; Site: right antecubital; ah 15:36 Follow up: Response: No adverse reaction ah 15:38 Follow up: Response: No adverse reaction ah 14:55 Drug: NS 0.9% 1000 ml Route: IV; Rate: 1 bolus; Site: right antecubital; ah 16:39 Follow up: Response: No adverse reaction; IV Status: Completed infusion; IV Intake: ah 1000ml 15:30 Drug: TORadol 30 mg Route: IVP; Site: right antecubital; ah 16:38 Follow up: Response: No adverse reaction; Pain is decreased ah 16:20 Drug: Doxycycline 100 mg Route: PO; ah 16:38 Follow up: Response: Medication administered at discharge. ah 16:20 Drug: Zithromax 1 grams Route: PO; ah 16:38 Follow up: Response: Medication administered at discharge. ah 16:20 Drug: Phenergan 25 mg Route: PO; 16:37 Follow up: Response: Medication administered at discharge. Disposition: 01/10/20 16:02 Discharged to Home. Impression: Pelvic and perineal pain, Low back pain. - Condition is Stable. - Discharge Instructions: Back Pain, Adult, Musculoskeletal Pain, Pelvic Pain, Female, Rehydration, Adult, Heat Therapy. - Prescriptions for Doxycycline Hyclate 100 mg Oral Tablet - take 1 tablet by ORAL route every 12 hours; 20 tablet. Diclofenac Sodium 75 mg Oral Tablet Sustained Release - take 1 tablet by ORAL route 2 times per day; 30 tablet. orphenadrine citrate 100 mg Oral Tablet Sustained Release - take 1 tablet by ORAL route 2 times per day As needed; 20 tablet. Tylenol- Codeine #3 300-30 mg Oral Tablet - take 2 tablets by ORAL route every 6 hours As needed; 14 tablet. - Medication Reconciliation Form, Thank You Letter, Antibiotic Education, Prescription Opioid Use form. - Follow up: Emergency Department; When: As needed; Reason: Worsening of condition. Follow up: Private Physician; When: 2 - 3 days; Reason: Recheck today's complaints, Continuance of care, Re-evaluation by your physician. Addendum: 01/13/2020 07:54 Co-signature as Attending Physician, Vitaliy Carey MD I agree with the assessment and c olson plan of care. Signatures: Dispatcher [employer] Cecilia Street RN RN sv Anderson, Corey, MD MD cha Therrien, Shelly, TECHNOLOGY ADVISOR-C TECHNOLOGY ADVISOR-Csnw Jess Rivera RN RN [facility] Simran Cano RN RN Corrections: (The following items were deleted from the chart) 01/10 16:40 16:02 01/10/2020 16:02 Discharged to Home. Impression: Pelvic and perineal pain; Low ah back pain. Condition is Stable. Forms are Medication Reconciliation Form, Thank You Letter, Antibiotic Education, Prescription Opioid Use. Follow up: Emergency Department; When: As needed; Reason: Worsening of condition. Follow up: Private Physician; When: 2 - 3 days; Reason: Recheck today's complaints, Continuance of care, Re-evaluation by your physician. snw
[2020-01-10] MEDS ORDERED: AZITHROMYCIN 250 MG TAB ONE (16:12)
[2020-01-10] MEDS ORDERED: DOXYCYCLINE 100 MG CAP PO ONE (16:12)
[2020-01-10] MEDS ORDERED: PROMETHAZINE 25 MG TABLET ONE (16:17)
[2020-01-10 21:33] VITALS: O2SAT 100
[2020-01-10 21:34] VITALS: BP 112/61
[2020-01-10 21:43] VITALS: TEMP 97.7
[2020-01-13 03:30] LABS: C.trachomatis RNA,TMA Not Detected (Not Detected)
== END 2020-01-10 16:40 | disposition home or self-care (01) ==
LOC: ER 13:07
DX: M54.5 Low back pain (principal); F41.9 Anxiety disorder, unspecified; G40.909 Epilepsy, unspecified, not intractable, without status epilepticus; Z88.1 Allergy status to other antibiotic agents; Z88.5 Allergy status to narcotic agent; Z88.8 Allergy status to other drugs, medicaments and biological substances
CPT/HCPCS: 36415; 74176; 76377; 80048; 81003; 81025; 85025; 87210; 87490; 87590; 96361; 96374; 96375; 99284; J2405; J3010; J7030; Q0169

== ENCOUNTER 2020-01-30 17:35 | Emergency (ER) | payer SELFPAY ==
--- OUTSIDE RECORDS SUMMARY | 2020-01-30 17:37 | XMS REPORT ---
:1980 [facility] Address [address] [place] [address] Care Team Providers Name Role Phone Unavailable [...] BRISSA HERNANDEZ LOC: MIGUEL ÁNGEL U #: [id number] AGE/SX: 38/F ROOM: [facility] REREG DR: Pete Mcgarry MD : 84 BED: A DIS: 08/04/18 STATUS: DIS Luis Manuel TLOC: SPEC #: [id number] RECD: 08/03/18 STATUS: CARRIE WEBER #: [id number] ABDIFATAH: 08/03/18- SUBM DR: Pete Mcgarry MD ENTERED: 08/06/18-1223 SP TYPE: NIVIA BARONE DR: ORDERED: CYTOLOGY/SACCOM CODES: M39681 - ENDOMETRIUM, NO PROCEDURES: CYTOLOGY/SACCOM (Incomplete) TISSUES: ENDOMETRIUM, NOS - ENDOMETRIAL CYST FLUID CLINICAL HISTORY Not provided (wpd) FINAL DIAGNOSIS Designated "endometrial cyst fluid" (cytospins and cell block): - no malignant cells identified Tissue code 1 CPT code(s): 94257, 24096 pkg/ wpd 08/07/18 @ 0066 GROSS DESCRIPTION The specimen is received in a container, labeled with the patient's name and designated "endometrial cyst fluid" and consists of 30 cc of brown fluid. Two smears were prepared. One cell block was prepared. /[facility] 08/06/18 @ 2929 MICROSCOPIC DESCRIPTION The specimen consists of blood, proteinaceous fluid, and a few foamy histiocytes with rare inflammatory cells. [facility] 08/07/18 @ 0249 COMMENT: The corresponding surgical pathology [id number] showed: Designated "cyst", excision - hemorrhagic corpus luteum cyst [facility] 08/07/18 @ 1758 Signed Ankita Hooks 08/08/18 1140 END OF REPORT ENDOMETRIUM, 2018-08-07 RUN BIOPSY 18:31:00 DATE: 08/07/18 [facility] PAGE 1 RUN TIME: 1939 Specimen Inquiry RUN USER: INTERFACE PATIE NT: BRISSA HERNANDEZ LOC: [facility] #: [id number] AGE/SX: 38/F ROOM: [facility] REREG DR: Pete Mcgarry MD : 84 BED: A DIS: 08/04/18 STATUS: DIS Luis Manuel TLOC: SPEC #: [id number] RECD: 08/03/18 STATUS: CARRIE KHALILKenny #: [id number] ABDIFATAH: 08/03/18- SUBM DR: Pete Mcgarry MD ENTERED: 08/06/18 SP TYPE: ENDOMETBX OTHR DR: ORDERED: LEVEL IV CODES: M20697 - ENDOMETRIUM, NO PROCEDURES: LEVEL IV (Incomplete) TISSUES: ENDOMETRIUM, NOS - ENDOMETRIAL CYST CLINICAL HISTORY Not provided (wpd) FINAL DIAGNOSIS Designated "cyst", excision - hemorrhagic corpus luteum cyst Tissue code 1 CPT code(s): 84532 [facility]/wpd 08/07/18 @ 3538 GROSS DESCRIPTION The specimen is received in a formalin-filled container, labeled with the patient's name and designated "cyst". The specimen consists of a 3 x 1.5 x 1.0 cm previously opened cystic tissue containing scant red and brown material. No discrete papillary or firm lesion is noted. [employer] sections are submitted in one cassette. /wpd 08/06/18 @ 1100 MICROSCOPIC DESCRIPTION The specimen consists of ovarian parenchyma containing a cystic structure lined by luteinized cells. The central portion of the cyst contains hemorrhage. A few benign cystic follicles are also present. [facility]/wpd 08/07/18 @ 1759 Signed Ankita Hooks 08/07/18 1831 END OF REPORT
[2020-01-30 18:57] LABS: Urine Blood NEGATIVE (NEG); Urine Glucose NEGATIVE (NEG); Urine Protein NEGATIVE (NEG); Urine pH 5.5 (5.0-7.0)
[2020-01-30] MEDS ORDERED: ONDANSETRON 4 MG/2 ML VIAL ONE (19:14)
[2020-01-30] MEDS ORDERED: KETOROLAC 30 MG/ML INJ ONE (19:14)
[2020-01-30] MEDS ORDERED: NA CHLORIDE 0.9% 1,000 ML ONE (19:14)
[2020-01-30 19:59] LABS: Absolute Lymphocytes (CBC) 2.1 K/uL (0.7-4.9); Basophils % 0.4 % (0-1.3); Hematocrit 44.3 % (36.0-45.0); RBC Red Blood Cell Count 5.22 M/uL (3.86-4.86)
[2020-01-30 20:08] LABS: Potassium 3.2 mmol/L (3.5-5.1)
[2020-01-30 20:31] LABS: Urine Bacteria <20 /HPF (<20); Urine Culture Reflex Order NOT NEEDED; Urine RBC <5 /HPF (NONE SEEN)
--- NOTE | 2020-01-30 20:43 | RAD REPORT ---
EXAM DESCRIPTION: CT - Abdomen Pelvis W Contrast - 01/30/2020 8:33 pm CLINICAL HISTORY: FLANK PAIN, severe kidney pain radiating to the back, dysuria COMPARISON: Abdomen Pelvis W Contrast dated 12/19/2019 TECHNIQUE: Biphasic, helical CT imaging of the abdomen and pelvis was performed following 100 ml non -ionic IV contrast. No oral contrast administered. All CT scans are performed using dose optimization technique as appropriate and may include automated exposure control or mA/KV adjustment according to patient size. FINDINGS: No suspicious findings in the lung bases. The liver, spleen, and pancreas show no suspicious findings. Liver is borderline to mildly fatty infi ltrated. No focal lesion identified. No gallbladder or biliary tree abnormality. Symmetric renal function is seen with no hydronephrosis or suspicious renal mass. No pyelonephritis o r acute parenchymal process. No bladder abnormalities. No adrenal abnormalities. IUD is well position ed in a normal-sized uterus. No suspicious ovarian finding. No fallopian tube dilatation. No dilated bowel loops or bowel wall thickening. The appendix is normal. No free air, free fluid or i nflammatory stranding. No hernia, mass or bulky lymphadenopathy. No suspicious bony findings. IMPRESSION: Contrast-enhanced CT abdomen imaging shows no acute or emergent finding. Nonacute findings are detailed in the body of the report. No significant change from December 19 ashish pavon
[2020-01-30] MEDS ORDERED: POTASSIUM CL SA 10 MEQ TAB PO ONE (20:44)
[2020-01-30] MEDS ORDERED: FENTANYL CITR 100 MCG/2 ML ONE (21:02)
--- NOTE | 2020-01-30 21:02 | ER ---
Nurse's Notes [facility] Name: Riana Damon Age: 39 yrs Sex: Female : 1980 Arrival Date: 01/30/2020 Time: 17:40 Bed 19 Private MD: Diagnosis: Low back pain Presentation: 01/29 17:59 Chief complaint: Patient states: severe pain in kidneys and back started yesterday, was ss seen for similar symptoms a month ago, was diagnosed with UTI and on abx , another episode last and abx was called in by clinic in [place] along with Flomax, was due to f/u next week but is having a lot of pain today also is having pelvic pain and pain with urination after she urinates. Coronavirus screen: The patient has NOT traveled to a country currently being monitored by the [facility] within the last 14 days. Proceed with normal triage procedures. Ebola Screen: Patient negative for fever greater than or equal to 101.5 degrees Fahrenheit, and additional compatible Ebola Virus Disease symptoms Patient denies exposure to infectious person. Patient denies travel to an Ebola-affected area in the 21 days before illness onset. No symptoms or risks identified at this time. Initial Sepsis Screen: Does the patient meet any 2 criteria? No. Patient's initial sepsis screen is negative. Does the patient have a suspected source of infection? No. Patient's initial sepsis screen is negative. Risk Assessment: Do you want to hurt yourself or someone else? Patient reports no desire to harm self or others. 17:59 Method Of Arrival: Ambulatory ss 17:59 Acuity: ELTON 3 ss Triage Assessment: 19:25 General: Appears uncomfortable, Behavior is appropriate for age. Pain: Complains of ea pain in right flank and left flank. 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 - Social history:: Smoking status: Patient denies any tobacco usage or history of. Screenin:24 Abuse screen: Denies threats or abuse. Nutritional screening: No deficits noted. ea Tuberculosis screening: No symptoms or risk factors identified. Fall Risk None identified. Assessment: 19:25 General: Appears uncomfortable, Behavior is appropriate for age. Pain: Complains of ea pain in right flank and left flank. Neuro: Level of Consciousness is awake, alert, obeys commands, Oriented to person, place, time, situation. Respiratory: Airway is patent Respiratory effort is even, unlabored, Respiratory pattern is regular, symmetrical. Derm: Skin is pink, warm \T\ dry. Musculoskeletal: Circulation, motion, and sensation intact. 20:50 Reassessment: Patient and/or family updated on plan of care and expected duration. Pain ea level reassessed. Patient is alert, oriented x 3, equal unlabored respirations, skin warm/dry/pink. Pt reports pain in lower back. Vital Signs: 17:59 BP 155 / 103; Pulse 99; Resp 18 S; Temp 98.8; Pulse Ox 100% on R/A; Weight 92.53 kg; ss Height 5 ft. 2 in. (157.48 cm); Pain 8/10; 19:58 BP 135 / 71; Pulse 83; Resp 12; Temp 98; Pulse Ox 100% ; Pain 7/10; ea 21:04 BP 141 / 92; Pulse 86; Resp 16; Pulse Ox 97% on R/A; ea 17:59 Body Mass Index 37.31 (92.53 kg, 157.48 cm) ED Course: 17:40 Patient arrived in ED. fj1 17:57 Eileen Doherty FNP-C is [facility]. kb 17:57 Chandra Bergman MD is Attending Physician. kb 18:03 Triage completed. ss 18:04 Arm band placed on. ss 18:20 Waldo Kennedy, TROY is Primary Nurse. em 19:24 Patient has correct armband on for positive identification. Bed in low position. Call ea light in reach. 19:42 Inserted saline lock: 20 gauge in right antecubital area, using aseptic technique. ea 20:37 CT Abd/Pelvis - IV Contrast Only In Process Unspecified. EDMS 21:19 No provider procedures requiring assistance completed. IV discontinued, intact, ea bleeding controlled, No redness/swelling at site. Pressure dressing applied. Administered Medications: 19:46 Drug: NS 0.9% 1000 ml Route: IV; Rate: 1000 ml; Site: right antecubital; ea 21:20 Follow up: Response: No adverse reaction; IV Status: Completed infusion; IV Intake: ea 500ml 19:46 Drug: Zofran (Ondansetron) 4 mg Route: IVP; Site: right antecubital; ea 21:06 Follow up: Response: No adverse reaction ea 19:47 Drug: TORadol - Ketorolac 15 mg Route: IVP; Site: right antecubital; ea 21:06 Follow up: Response: No adverse reaction; Pain is decreased ea 21:00 Drug: fentaNYL (PF) 25 mcg Route: IVP; Site: right antecubital; ea 21:20 Follow up: Response: No adverse reaction ea 21:01 Drug: Potassium Chloride 40 mEq Route: PO; ea 21:06 Follow up: Response: No adverse reaction ea Intake: 21:20 IV: 500ml; Total: 500ml. ea Outcome: 21:01 Discharge ordered by . kb 21:19 Discharged to home ambulatory, with family. ea 21:19 Condition: stable 21:19 Discharge instructions given to patient, Instructed on discharge instructions, follow up and referral plans. medication usage, Demonstrated understanding of instructions, follow-up care, medications, Prescriptions given X 2. 21:21 Patient left the ED. ea Signatures: Dispatcher [employer] Eileen Franco, ABRIL RUIZ-Waldo Knight, RN Katie Diaz RN RN ss Antunez, Elena, RN RN ea James, Frank fj1 Corrections: (The following items were deleted from the chart) 18:04 17:59 BP 155 / 103; Pulse 99bpm; Resp 18bpm; Spontaneous; Pulse Ox 100% RA; Temp 98.8F; ss ss
--- NOTE | 2020-01-30 21:02 | EDPHYS ---
Physician Documentation [facility] Name: Riana Damon Age: 39 yrs Sex: Female : 1980 Arrival Date: 01/30/2020 Time: 17:40 Bed 19 Private MD: ED Physician Chandra Bergman HPI: 01/29 19:18 This 39 yrs old Female presents to ER via Ambulatory with complaints of Low kb Back Pain, Pain With Urination. 19:18 The patient has not experienced similar symptoms in the past. The patient has not kb recently seen a physician. 19:19 The patient complains of pain in the left flank and right flank. The pain does not kb radiate. Onset: The symptoms/episode began/occurred last week. Modifying factors: The symptoms are alleviated by nothing. the symptoms are aggravated by nothing. Associated signs and symptoms: The patient has no apparent associated signs or symptoms. Severity of pain: At its worst the pain was moderate severe in the emergency department the pain is unchanged. Pt reports she came in for same back pain on 01/10/20 and was told she had a UTI. Took antibiotics, but still had pain so she followed up with PCP and was given another antibiotic for a "kidney infection." Came in today because the pain has been worse. . 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 - Social history:: Smoking status: Patient denies any tobacco usage or history of. ROS: 19:17 Constitutional: Negative for fever, chills, and weight loss, Cardiovascular: Negative kb for chest pain, palpitations, and edema, Respiratory: Negative for shortness of breath, cough, wheezing, and pleuritic chest pain, Abdomen/GI: Negative for abdominal pain, nausea, vomiting, diarrhea, and constipation, : Negative for injury, bleeding, discharge, and swelling, MS/Extremity: Negative for injury and deformity, Skin: Negative for injury, rash, and discoloration, Neuro: Negative for headache, weakness, numbness, tingling, and seizure. 19:17 Back: Positive for flank pain. Exam: 19:17 Constitutional: This is a well developed, well nourished patient who is awake, alert, kb and in no acute distress. Head/Face: Normocephalic, atraumatic. Chest/axilla: Normal chest wall appearance and motion. Nontender with no deformity. No lesions are appreciated. Cardiovascular: Regular rate and rhythm with a normal S1 and S2. No gallops, murmurs, or rubs. Normal PMI, no JVD. No pulse deficits. Respiratory: Lungs have equal breath sounds bilaterally, clear to auscultation and percussion. No rales, rhonchi or wheezes noted. No increased work of breathing, no retractions or nasal flaring. Abdomen/GI: Soft, non-tender, with normal bowel sounds. No distension or tympany. No guarding or rebound. No evidence of tenderness throughout. Skin: Warm, dry with normal turgor. Normal color with no rashes, no lesions, and no evidence of cellulitis. MS/ Extremity: Pulses equal, no cyanosis. Neurovascular intact. Full, normal range of motion. Neuro: Awake and alert, GCS 15, oriented to person, place, time, and situation. Cranial nerves II-XII grossly intact. Motor strength 5/5 in all extremities. Sensory grossly intact. Cerebellar exam normal. Normal gait. 19:17 Back: pain, that is moderate, ROM is normal, normal spinal alignment noted, CVA tenderness, that is moderate, is noted bilaterally. Vital Signs: 17:59 BP 155 / 103; Pulse 99; Resp 18 S; Temp 98.8; Pulse Ox 100% on R/A; Weight 92.53 kg; ss Height 5 ft. 2 in. (157.48 cm); Pain 8/10; 19:58 BP 135 / 71; Pulse 83; Resp 12; Temp 98; Pulse Ox 100% ; Pain 7/10; ea 21:04 BP 141 / 92; Pulse 86; Resp 16; Pulse Ox 97% on R/A; ea 17:59 Body Mass Index 37.31 (92.53 kg, 157.48 cm) MDM: 18:05 Patient medically screened. kb 19:17 Data reviewed: vital signs, nurses notes. Data interpreted: Pulse oximetry: on room air kb is 100 %. Interpretation: normal. 20:50 Counseling: I had a detailed discussion with the patient and/or guardian regarding: the kb historical points, exam findings, and any diagnostic results supporting the discharge/admit diagnosis, lab results, radiology results, the need for outpatient follow up, a family practitioner, to return to the emergency department if symptoms worsen or persist or if there are any questions or concerns that arise at home. 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 Pt given non-opiod pharmacologic kb management. . 01/29 17:58 Order name: Urine Microscopic Only; Complete Time: 20:32 kb 01/29 18:34 Order name: Urine Dipstick--Ancillary (enter results); Complete Time: 19:10 ar5 01/29 18:34 Order name: Urine --Ancillary (enter results); Complete Time: 19:10 ar5 01/29 18:48 Order name: Basic Metabolic Panel; Complete Time: 20:28 kb 01/29 18:48 Order name: CBC with Diff; Complete Time: 20:28 kb 01/29 18:48 Order name: CT Abd/Pelvis - IV Contrast Only; Complete Time: 20:49 kb 01/29 17:58 Order name: Urine Test (obtain specimen); Complete Time: 18:10 kb 01/29 17:58 Order name: Urine Dipstick-Ancillary (obtain specimen); Complete Time: 18:10 kb 01/29 18:48 Order name: IV Saline Lock; Complete Time: 19:47 kb 01/29 18:48 Order name: Labs collected and sent; Complete Time: 19:47 kb Administered Medications: 19:46 Drug: NS 0.9% 1000 ml Route: IV; Rate: 1000 ml; Site: right antecubital; ea 21:20 Follow up: Response: No adverse reaction; IV Status: Completed infusion; IV Intake: ea 500ml 19:46 Drug: Zofran (Ondansetron) 4 mg Route: IVP; Site: right antecubital; ea 21:06 Follow up: Response: No adverse reaction ea 19:47 Drug: TORadol - Ketorolac 15 mg Route: IVP; Site: right antecubital; ea 21:06 Follow up: Response: No adverse reaction; Pain is decreased ea 21:00 Drug: fentaNYL (PF) 25 mcg Route: IVP; Site: right antecubital; ea 21:20 Follow up: Response: No adverse reaction ea 21:01 Drug: Potassium Chloride 40 mEq Route: PO; ea 21:06 Follow up: Response: No adverse reaction ea Disposition: 01/30 07:05 Co-signature as Attending Physician, Chandra Bergman MD I agree with the assessment and kdr plan of care. Disposition: 01/30/20 21:01 Discharged to Home. Impression: Low back pain. - Condition is Stable. - Discharge Instructions: Musculoskeletal Pain, Back Pain, Adult, [id number]. - Prescriptions for Diclofenac Sodium 75 mg Oral Tablet, Delayed Release (E.C.) - take 1 tablet by ORAL route 2 times per day As needed; 30 tablet. orphenadrine citrate 100 mg Oral Tablet Sustained Release - take 1 tablet by ORAL route 2 times per day As needed; 20 tablet. - Medication Reconciliation Form, Thank You Letter, Antibiotic Education, Prescription Opioid Use form. - Follow up: Emergency Department; When: As needed; Reason: Worsening of condition. Follow up: Private Physician; When: 2 - 3 days; Reason: Recheck today's complaints, Continuance of care, Re-evaluation by your physician. Signatures: Dispatcher [employer] EDMS Eileen Doherty, GEOLOGICAL SPECIALIST-C GEOLOGICAL SPECIALIST-Andreb Chandra Bergman MD MD [facility] Katie Vega RN RN ss Antunez, Elena, RN RN ea Corrections: (The following items were deleted from the chart) 01/29 21:21 21:01 01/30/2020 21:01 Discharged to Home. Impression: Low back pain. Condition is ea Stable. Forms are Medication Reconciliation Form, Thank You Letter, Antibiotic Education, Prescription Opioid Use. Follow up: Emergency Department; When: As needed; Reason: Worsening of condition. Follow up: Private Physician; When: 2 - 3 days; Reason: Recheck today's complaints, Continuance of care, Re-evaluation by your physician. kb
[2020-01-30 21:31] VITALS: TEMP 98
[2020-01-30 21:32] VITALS: BP 141/92; O2SAT 97
== END 2020-01-30 21:21 | disposition home or self-care (01) ==
LOC: ER 17:35
DX: M54.5 Low back pain (principal); Z88.5 Allergy status to narcotic agent; Z88.8 Allergy status to other drugs, medicaments and biological substances
CPT/HCPCS: 36415; 74177; 80048; 81003; 81015; 81025; 85025; 96361; 96374; 96375; 99284; J2405; J3010; J7030; Q9967

== ENCOUNTER 2021-02-08 21:05 | Emergency (ER) | payer SELFPAY ==
--- OUTSIDE RECORDS SUMMARY | 2021-02-08 21:10 | XMS REPORT | Continuity of Care Document ---
:1980 Author Organization [facility] t Address [address] [place] [address] Care Team Providers Name Role Phone Unavailable Unavailable Unavailable Payers Payer Name Policy Type Policy Number Effective Date Expiration Date S ource Problems Condition Condition Condition Status Onset Resolution Last Treating Co mments Source Name Details Category Date Date Treatment Clinician Date Chronic Chronic Problem Active [place] post-traum Post-traum 715 da atic atic 00:00: [facility] stress Stress 00 al disorder Disorder Health Outreac h Program Allergies, Adverse Reactions, Alerts Allergy Allergy Status Severity Reaction(s) Onset Inactive Treating Comm ents Source Name Type Date Date Clinician droperid DA Active [facility] [place] morphine DA Active U 2018 [facility] [place] cefaclor DA Active [facility] [place] Cefaclor Propensi Active 2016-11 [place] to 11-29 [facility] adverse 00:00: st reaction 00 s to drug Droperid Propensi Active 2016-11 [place] to 11-29 [facility]i adverse 00:00: st reaction 00 s to drug Morphine Propensi Active 2016-11 [place] to 11-29 Methodi adverse 00:00: st reaction 00 s to drug droperid DA Active [place] 2014-11 [facility] [place] morphine DA Active U 2014-11 [facility] [place] cefaclor DA Active [place] 2014-11 [facility] [place] Social History Social Habit Start Date Stop Date Quantity Comments Source Sex Assigned At [birth year] [facility] ethodist 00:00:00 00:00:00 Medications Ordered Filled Start Stop Current Ordering Indication Dosage Frequency Signature Comments Components Source Medication Medication Date Date Medication? Clinician (SIG) Name Name Klonopin 1 Klonopin 1 No 1 BID Klonopin 1 [place] mg tablet mg tablet mg tablet da Take 1 Take 1 Take 1 [facility] tablet tablet tablet al twice a day twice a day twice a Health by oral by oral day by Outreac route. route. oral h route. Program prazosin 2 prazosin 2 No 1capsul Q1D prazosin 2 [place] mg capsule mg capsule e(s) mg capsule da Take 1 Take 1 Take 1 [facility] capsule capsule capsule al every day every day every day Health by oral by oral by oral Outrea c route at route at route at h bedtime. bedtime. bedtime. Pro gram Procedures This patient has no known procedures. Plan of Care Planned Activity Planned Date Details Comments Source Instructions [facility] Outreach Program Encounters Start End Encounter Admission Attending Care Care Encounter Source Date/Time Date/Time Type Type Clinicians Facility Department ID 2019-09-30 2019-09-30 Oswaldo PRINCE [place] - [id number] M [facility] 00:00:00 00:00:00 Michele Noriega MD: [facility] [address] [facility] [address], [facility] [place] Program [id number] , Ph. [phone] 2019-08-12 Oswaldo MORRISON [place] - [id number] M [facility] 00:00:00 00:00:00 Michele Noriega MD: [facility] [address] [facility] [place] [facility] [address], [facility] [place] Program [address] , Ph. [phone] Results Test Description Test Time Test Comments Results Result [facility] e Noa DOVE,ROBYN 2018-08-08 11:40:00 --------RUN DATE: 08/08/18 [facility] PAGE 1 RUN TIME: 1141 Specimen Inquiry RUN USER: INTERFACE --------PATIENT: BRISSA HERNANDEZ [facility] U #: [id number] AGE/SX: 38/F ROOM: [facility] RE08/02/18REG DR: Pete Mcgarry MD : [birth year] BED: A DIS: 08/04/18 STATUS: DIS Luis Manuel TLOC: -------- SPEC #: [id number] RECD: 08/03/18 STATUS: CARRIE WEBER #: [id number] ABDIFATAH: 08/03/18- SUBM DR: Pete Mcgarry MD ENTERED: 08/06/18 [facility]: ORDERED: CYTOLOGY/SACCOM CODES: [id number] - ENDOMETRIUM, NO PROCEDURES: CYTOLOGY/SACCOM (Incomplete) TISSUES: ENDOMETRIUM, NOS - ENDOMETRIAL CYST FLUID CLINICAL HISTORY Not provided (wpd) FINAL DIAGNOSIS Designated "endometrial cyst fluid" (cytospins and cell block): - no malignant cells identified Tissue code 1 CPT code(s): 56442, 70289 [facility] 08/07/18 @ 6721 GROSS DESCRIPTION The specimen is received in a container, labeled with the patient's name and designated "endometrial cyst fluid" and consists of 30 cc of brown fluid. Two smears were prepared. One cell block was prepared. /[facility] 08/06/18 @ 5686 MICROSCOPIC DESCRIPTION The specimen consists of blood, proteinaceous fluid, and a few foamy histiocytes with rare inflammatory cells. [facility] 08/07/18 @ 8404 COMMENT: The corresponding surgical pathology [id number] showed: Designated "cyst", excision - hemorrhagic corpus luteum cyst [facility] 08/07/18 @ 1758 Signed Ankita Hooks 08/08/18 1140 -------- END OF REPORT ENDOMETRIUM,BIOPSY 2018-08-07 18:31:00 --------RUN DATE: 08/07/18 [facility] PAGE 1 RUN TIME: 1939 Specimen Inquiry RUN USER: INTERFACE --------PATIENT: BRISSA HERNANDEZ LOC: U #: [id number] AGE/SX: 38/F ROOM: [facility] RE08/02/18[facility] DR: Pete Mcgarry MD : 84 BED: A DIS: 08/04/18 STATUS: DIS Luis Manuel TLOC: -------- SPEC #: [id number] RECD: 08/03/18-833 STATUS: CARRIE WEBER #: [id number] ABDIFATAH: 08/03/18- SUBM DR: Pete Mcgarry MD ENTERED: 08/06/1835 SP TYPE: ENDOMETBX OTHR DR: ORDERED: LEVEL IV CODES: [id number] - ENDOMETRIUM, NO PROCEDURES: LEVEL IV (Incomplete) TISSUES: ENDOMETRIUM, NOS - ENDOMETRIAL CYST CLINICAL HISTORY Not provided (wpd) FINAL DIAGNOSIS Designated "cyst", excision - hemorrhagic corpus luteum cyst Tissue code 1 CPT code(s): 42756 [facility] 08/07/18 @ 1758 GROSS DESCRIPTION The specimen is received in a formalin-filled container, labeled with the patient's name and designated "cyst". The specimen consists of a 3 x 1.5 x 1.0 cm previously opened cystic tissue containing scant red and brown material. No discrete papillary or firm lesion is noted. Clamp Jig Assembler sections are submitted in one cassette. /d 08/06/18 @ 1100 MICROSCOPIC DESCRIPTION The specimen consists of ovarian parenchyma containing a cystic structure lined by luteinized cells. The central portion of the cyst contains hemorrhage. A few benign cystic follicles are also present. [facility] 08/07/18 @ 1759 Signed Ankita Hooks 08/07/18 1831 -------- END OF REPORT
[2021-02-09] MEDS ORDERED: KETOROLAC 30 MG/ML INJ ONE (03:39)
[2021-02-09 03:45] LABS: Urine Blood NEGATIVE (NEG); Urine Glucose NEGATIVE (NEG); Urine Protein NEGATIVE (NEG); Urine Specific Gravity 1.015 (1.005-1.030); Urine pH 5.5 (5.0-7.0)
[2021-02-09] MEDS ORDERED: ONDANSETRON 4 MG (ODT) TAB ONE (03:54)
--- NOTE | 2021-02-09 05:28 | ER ---
Nurse's Notes [facility] Name: Riana Damon Age: 40 yrs Sex: Female : 1980 Arrival Date: 02/08/2021 Time: 21:57 Bed 14 Private MD: Diagnosis: Intervertebral disc disorders with radiculopathy, lumbosacral region Presentation: 02/08 21:58 Chief complaint: Patient states: Lower back pain, radiates to the hip on the R side. I ca1 was in so much pain, around 1500 I passed out in pain. I passed out twice, and hit my head one time. Coronavirus screen: Client denies travel out of the [place] in the last 14 days. At this time, the client does not indicate any symptoms associated with coronavirus-19. Ebola Screen: Patient negative for fever greater than or equal to 101.5 degrees Fahrenheit, and additional compatible Ebola Virus Disease symptoms Patient denies exposure to infectious person. Patient denies travel to an Ebola-affected area in the 21 days before illness onset. No symptoms or risks identified at this time. Initial Sepsis Screen: Does the patient meet any 2 criteria? No. Patient's initial sepsis screen is negative. Does the patient have a suspected source of infection? No. Patient's initial sepsis screen is negative. Risk Assessment: Do you want to hurt yourself or someone else? Patient reports no desire to harm self or others. Onset of symptoms was February 08, 2021. 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 - Social history:: Smoking status: Reported history of juuling and/or vaping. Screenin/16 06:54 Abuse screen: Denies threats or abuse. Nutritional screening: No deficits noted. ea Tuberculosis screening: No symptoms or risk factors identified. Fall Risk None identified. Assessment: 03:50 Reassessment: pt states " the toradol is good as like a secondary medication but sg usually they have to give something a little bit stronger to help control pain for me. I know Im allergic to morphine, so at other hospitals they have given me dilaudid. If you can just let the provider know that so that if the pain isnt controlled with this he knows." notified. 04:56 Reassessment: Patient appears in no apparent distress at this time. pt requesting sg different pain medication at this time, no new orders received. 06:55 Reassessment: Patient and/or family updated on plan of care and expected duration. Pain ea level reassessed. Patient is alert, oriented x 3, equal unlabored respirations, skin warm/dry/pink. Pt complaining of pain, verbal order obtained for lidocaine patch to affected area, patch placed on pt. Discharge instruction given to patient, verbalized the understanding of instruction. Pt left ED via wheelchair per ED staff. Pt awaiting for family in [facility]. Vital Signs: 02/08 21:58 BP 145 / 94; Pulse 82; Resp 16 S; Temp 98.3(TE); Pulse Ox 98% on R/A; Weight 108.86 kg ca1 (R); Height 5 ft. 2 in. (157.48 cm) (R); Pain 8/10; 02/09 03:00 BP 140 / 88; Pulse 80; Resp 16; Pulse Ox 98% on R/A; sg 02/08 21:58 Body Mass Index 43.90 (108.86 kg, 157.48 cm) ca1 ED Course: 02/08 21:57 Patient arrived in ED. ca1 22:01 Triage completed. ca1 22:02 Arm band placed on right wrist. ca1 02/09 02:39 Casey Melara MD is Attending Physician. tw4 02:58 Marcello Servin, TROY is Primary Nurse. sg 03:[address] via wheelchair. sg 04:03 Patient moved back from CT. sg 04:23 CT Lumbar Spine Wo Con In Process Unspecified. EDMS 04:24 CT Head Brain wo Cont In Process Unspecified. EDMS 06:53 No provider procedures requiring assistance completed. Patient did not have IV access ea during this emergency room visit. 06:54 Patient has correct armband on for positive identification. Placed in gown. Bed in low ea position. Administered Medications: 03:42 Drug: TORadol 60 mg Route: IM; Site: left ventrogluteal; sg 04:15 Follow up: Response: No adverse reaction; Pain is unchanged, physician notified sg 03:42 Drug: Ondansetron (Zofran) 4 mg Route: PO; sg 06:53 Follow up: Response: No adverse reaction ea 06:53 Drug: Lidoderm 5 % (700 mg/patch) 1 patches Route: Topical; Site: affected area; ea Outcome: 05:28 Discharge ordered by MD. angel 06:54 Discharged to home ambulatory, with family. ea 06:54 Condition: stable 06:54 Discharge instructions given to patient, Instructed on discharge instructions, follow up and referral plans. medication usage, Demonstrated understanding of instructions, follow-up care, medications, Prescriptions given X 4. 06:55 Patient left the ED. ea Signatures: Dispatcher [employer] EDMS Marcello Servin RN RN sg Antunez, Elena, RN RN ea Wadley, Terrence, MD MD tw4 Aisha Chung RN RN ca1
--- NOTE | 2021-02-09 05:28 | EDPHYS ---
Physician Documentation [facility] Name: Riana Damon Age: 40 yrs Sex: Female : 1980 Arrival Date: 02/08/2021 Time: 21:57 Bed 14 Private MD: ED Physician Casey Melara HPI: 02/09 05:52 This 40 yrs old Female presents to ER via Wheelchair with complaints of Back tw4 Pain - - lower back pain, LOC x 2. 05:52 The patient presents with pain that is chronic, with no known mechanism of injury. The tw4 symptoms are located in the lumbar area, left low back and right low back. Onset: The symptoms/episode began/occurred 1 month(s) ago, and became persistent yesterday. The pain radiates to the lumbar spine. Associated signs and symptoms: The patient has no apparent associated signs or symptoms. Severity of symptoms: At their worst the symptoms were moderate, in the emergency department the symptoms are unchanged. 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 - Social history:: Smoking status: Reported history of juuling and/or vaping. ROS: 02/09 05:52 Constitutional: Negative for fever, chills, and weight loss, Eyes: Negative for injury, tw4 pain, redness, and discharge, Cardiovascular: Negative for chest pain, palpitations, and edema, Respiratory: Negative for shortness of breath, cough, wheezing, and pleuritic chest pain, Abdomen/GI: Negative for abdominal pain, nausea, vomiting, diarrhea, and constipation. MS/Extremity: Negative for injury and deformity, Skin: Negative for injury, rash, and discoloration, Neuro: Negative for headache, weakness, numbness, tingling, and seizure. Back: Positive for decreased range of motion, pain at rest, pain with movement, radiated pain. Exam: 05:52 Constitutional: This is a well developed, well nourished patient who is awake, alert, tw4 and in no acute distress. Head/Face: Normocephalic, atraumatic. Chest/axilla: Normal chest wall appearance and motion. Nontender with no deformity. No lesions are appreciated. Cardiovascular: Regular rate and rhythm with a normal S1 and S2. No gallops, murmurs, or rubs. Normal PMI, no JVD. No pulse deficits. Respiratory: Lungs have equal breath sounds bilaterally, clear to auscultation and percussion. No rales, rhonchi or wheezes noted. No increased work of breathing, no retractions or nasal flaring. Abdomen/GI: Soft, non-tender, with normal bowel sounds. No distension or tympany. No guarding or rebound. No evidence of tenderness throughout. 05:52 MS/ Extremity: Pulses equal, no cyanosis. Neurovascular intact. Full, normal range of motion. Neuro: Awake and alert, GCS 15, oriented to person, place, time, and situation. Cranial nerves II-XII grossly intact. Motor strength 5/5 in all extremities. Sensory grossly intact. Cerebellar exam normal. Normal gait. 05:52 Back: pain, that is moderate, of the lumbar area, left low back and right low back, ROM is normal. Vital Signs: 02/08 21:58 BP 145 / 94; Pulse 82; Resp 16 S; Temp 98.3(TE); Pulse Ox 98% on R/A; Weight 108.86 kg ca1 (R); Height 5 ft. 2 in. (157.48 cm) (R); Pain 8/10; 02/09 03:00 BP 140 / 88; Pulse 80; Resp 16; Pulse Ox 98% on R/A; sg 02/08 21:58 Body Mass Index 43.90 (108.86 kg, 157.48 cm) ca1 MDM: 05:28 Patient medically screened. tw4 05:52 Data reviewed: vital signs, nurses notes. Data interpreted: Pulse oximetry: tw4 Interpretation: normal. Counseling: I had a detailed discussion with the patient and/or guardian regarding: the historical points, exam findings, and any diagnostic results supporting the discharge/admit diagnosis, radiology results. Special discussion: I discussed with the patient/guardian in detail that at this point there is no indication for admission to the hospital. It is understood, however, that if the symptoms persist or worsen the patient needs to return immediately for re-evaluation. 02/09 02:59 Order name: Urine Dipstick--Ancillary (enter results) 02/09 02:59 Order name: Urine --Ancillary (enter results) 02/09 02:57 Order name: CT Lumbar Spine Wo Con tw4 02/09 02:57 Order name: CT Head Brain wo Cont tw4 Administered Medications: 03:42 Drug: TORadol 60 mg Route: IM; Site: left ventrogluteal; sg 04:15 Follow up: Response: No adverse reaction; Pain is unchanged, physician notified sg 03:42 Drug: Ondansetron (Zofran) 4 mg Route: PO; sg 06:53 Follow up: Response: No adverse reaction ea 06:53 Drug: Lidoderm 5 % (700 mg/patch) 1 patches Route: Topical; Site: affected area; ea Disposition: 02/09/21 05:28 Discharged to Home. Impression: Intervertebral disc disorders with radiculopathy, lumbosacral region. - Condition is Stable. - Discharge Instructions: Herniated Disk, Lumbosacral Radiculopathy, Herniated Disk, Bwtm-ba-Feor. - Prescriptions for ketorolac 10 mg Oral tablet - take 1 tablet by ORAL route every 4 hours not to exceed 40 mg in 24hrs; 20 tablet. Cyclobenzaprine 5 mg Oral Tablet - take 1 tablet by ORAL route 3 times per day As needed; 15 tablet. Lidoderm 5 % Topical adhesive patch,medicated - apply 1 patch by TRANSDERMAL route once daily; 1 box. Voltaren 1 % Topical gel - apply 2 gram by TOPICAL route 4 times per day; 1 box. tizanidine 2 mg Oral tablet - take 2 tablet by ORAL route every 6 hours as needed not to exceed 3 doses in 24 hours; 10 tablet. - Medication Reconciliation Form, Thank You Letter, Antibiotic Education, Prescription Opioid Use form. - Follow up: Private Physician; When: Upon discharge from the Emergency Department; Reason: Recheck today's complaints, Continuance of care, Re-evaluation by your physician. - Problem is new. - Symptoms have improved. Signatures: Dispatcher [employer] Marcello Rose RN RN sg Munoz, Edgar, RN RN em Antunez, Elena, RN RN ea Wadley, Terrence, MD MD tw4 Aisha Chung RN RN ca1 Corrections: (The following items were deleted from the chart) 06:55 05:28 02/09/2021 05:28 Discharged to Home. Impression: Intervertebral disc disorders ea with radiculopathy, lumbosacral region. Condition is Stable. Forms are Medication Reconciliation Form, Thank You Letter, Antibiotic Education, Prescription Opioid Use. Follow up: Private Physician; When: Upon discharge from the Emergency Department; Reason: Recheck today's complaints, Continuance of care, Re-evaluation by your physician. Problem is new. Symptoms have improved. tw4
[2021-02-09] MEDS ORDERED: LIDOCAINE 4% PATCH ONE (06:57)
[2021-02-09 06:59] VITALS: TEMP 98.3; O2SAT 98
[2021-02-09 07:00] VITALS: BP 140/88
--- NOTE | 2021-02-09 12:05 | RAD REPORT ---
EXAM DESCRIPTION: CT - Head Brain Wo Cont - 02/09/2021 6:15 am CLINICAL HISTORY: SYNCOPE COMPARISON: None Available. TECHNIQUE: Contiguous axial images of the brain were obtained without the administration of intraven ous contrast. Coronal and sagittal reformats obtained and reviewed. This exam was performed accordi ng to our departmental dose-optimization program which includes use of Automated Exposure Control, ad justment of the mA and/or kV according to patient size and/or use of iterative reconstruction techniq ue. FINDINGS: Brain: No hemorrhage. No territorial infarct. No mass effect. No herniation. Ventricles: Within normal limits for patient's age. Bones: No acute osseous abnormality. Paranasal sinuses: Unremarkable. Mastoid air cells: Unremarkable. Soft tissues: No acute abnormality. IMPRESSION: No acute intracranial abnormalities. Electronically signed by: Zane Jacobsen DO 02/09/2021 4:36 AM CDT Due to temporary technical issues with the PACS/Fluency reporting system, reports are being signed by the in house radiologist without review as a courtesy to ensure prompt reporting. The interpreting r adiologist is fully responsible for the content of the report.
--- NOTE | 2021-02-09 12:20 | RAD REPORT ---
EXAM DESCRIPTION: CTSpine Lumbar Wo Con02/09/2021 6:14 am CLINICAL HISTORY: PAIN COMPARISON: None available TECHNIQUE: Axial CT of the lumbar spine obtained without contrast. FINDINGS: Alignment of the lumbar spine is maintained without evidence of subluxation. No fracture identified. Vertebral body height preserved. Prevertebral soft tissues are unremarkable. Minimal multilevel endplate spondylosis. Intervertebral disc height preserved. Mild left lateral disc protrusion at L4/5 producing mild left neural foraminal narrowing. Aortoiliac atherosclerosis. No definite acute abnormalities of visualized portions of the abdominal s oft tissues. IMPRESSION: 1. No acute fracture or subluxation of the lumbar spine. 2. Mild left lateral disc protrusion at L4/5 producing mild left neural foraminal narrowing. MRI wo uld provide more complete characterization. This exam was performed according to our departmental dose-optimization program, which includes autom ated exposure control, adjustment of the mA and/or kV according to patient size and/or use of iterati ve reconstruction technique. Electronically signed by: Wilton Cohen 02/09/2021 4:51 AM CDT Due to temporary technical issues with the PACS/Fluency reporting system, reports are being signed by the in house radiologist without review as a courtesy to ensure prompt reporting. The interpreting r adiologist is fully responsible for the content of the report.
== END 2021-02-09 06:55 | disposition home or self-care (01) ==
LOC: ER 21:05
DX: M51.17 Intervertebral disc disorders with radiculopathy, lumbosacral region (principal); Z88.1 Allergy status to other antibiotic agents; Z88.5 Allergy status to narcotic agent
CPT/HCPCS: 70450; 72131; 81003; 81025; 96372; 99284